=== PATIENT | female | born 1985 | race Caucasian/White ===

== ENCOUNTER 2017-09-24 05:45 | Day surgery (SDC) | payer OTHER ==
[2017-09-23 11:00] VITALS: BMI 24.2
--- NOTE | 2017-09-24 07:14 | HP ---
Admitting History and Physical - Admission History of Present Illness: Patient is a 32 y/o female with a past medical history of seasonal allergies, depression and anxiety. patient presents for ect, patient has received ect in the past and her last ect was 08/15/17. Patient reports she was admitted to [facility] from 03/22 - 04/23. patient reports receiving ect at [facility] and received a total of 13 ects to date. She report compliance with prescribed medications. Patient denies any recent illness or hospitalizations. She denies any suicidal or homicidal ideation, visual or auditory hallucinations. History Source: Patient Limitations to Obtaining History: No Limitations - Past Medical History ...LMP: 09/20/17 - Smoking History Smoking history: Former smoker Have you smoked in the past 12 months: Yes If you are a former smoker, when did you quit?: AUGUST 2017 - Alcohol/Substance Use Hx Alcohol Use: Yes (OCCASIONAL) History of Substance Use: reports: None - Social History Usual Living Arrangement: Yes: Alone ADL: Independent Occupation: [employer] History of Recent Travel: No Home Medications - Allergies Allergies/Adverse Reactions: Allergies Allergy/AdvReac Type Severity Reaction Status Date / Time cephalexin [From Keflex] Allergy Severe Difficulty Verified 09/23/17 10:47 Breathing raw vegetable Allergy Severe Difficulty Verified 09/23/17 10:47 Breathing FRUIT Allergy Severe Difficulty Uncoded 09/23/17 10:48 Breathing - Home Medications Home Medications: Ambulatory Orders Aripiprazole [Abilify] 10 mg PO DAILY 09/23/17 [place] Carbonate [Eskalith -] 900 mg PO DAILY 09/23/17 Lorazepam [Ativan] 1 mg PO BID PRN 09/23/17 Vortioxetine Hydrobromide [Trintellix] 20 mg PO DAILY 09/23/17 Family Disease History - Family Disease History Family History: Denies Review of Systems - Review of Systems Constitutional: reports: No Symptoms Eyes: reports: No Symptoms HENT: reports: No Symptoms Neck: reports: No Symptoms Cardiovascular: reports: No Symptoms Respiratory: reports: No Symptoms Gastrointestinal: reports: No Symptoms Genitourinary: reports: No Symptoms Musculoskeletal: reports: No Symptoms Integumentary: reports: No Symptoms Neurological: reports: No Symptoms Endocrine: reports: No Symptoms Hematology/Lymphatic: reports: No Symptoms Psychiatric: reports: No Symptoms Physical Examination Vital Signs: Vital Signs Temperature 98.2 F 09/24/17 06:30 Pulse Rate 63 09/24/17 06:30 Respiratory Rate 18 09/24/17 06:30 Blood Pressure 117/82 09/24/17 06:30 O2 Sat by Pulse Oximetry (%) 97 09/24/17 06:30 Constitutional: Yes: Well Nourished, No Distress, Calm Eyes: Yes: WNL, Conjunctiva Clear, EOM Intact HENT: Yes: WNL, Atraumatic, Normocephalic Neck: Yes: WNL, Supple, Trachea Midline Cardiovascular: Yes: WNL, Regular Rate and Rhythm, S1, S2 Respiratory: Yes: WNL, Regular, CTA Bilaterally Gastrointestinal: Yes: WNL, Normal Bowel Sounds, Soft ...Rectal Exam: Yes: Deferred Renal/: Yes: WNL Musculoskeletal: Yes: WNL Extremities: Yes: WNL Edema: No Peripheral Pulses WNL: Yes Peripheral Pulses: Left Radial: 4+, Right Radial: 4+, Left Doralis Pedis: 3+, Right Dorsalis Pedis: 3+, Left Femoral: 3+, Right Femoral: 3+ Integumentary: Yes: WNL Neurological: Yes: WNL, Alert, Oriented ...Motor Strength: WNL Psychiatric: Yes: WNL, Alert, Oriented Labs: Laboratory Tests 09/24/17 06:16 Urine HCG, Qual Negative CBC WBC 4.8 K/mm3 (4.0-10.0) 09/24/17 06:15 RBC 4.42 M/mm3 (3.60-5.2) 09/24/17 06:15 Hgb 14.4 GM/dL (10.7-15.3) 09/24/17 06:15 Hct 41.6 % (32.4-45.2) 09/24/17 06:15 MCV 94.1 fl (80-96) 09/24/17 06:15 MCH 32.6 pg (25.7-33.7) 09/24/17 06:15 MCHC 34.6 g/dl (32.0-36.0) 09/24/17 06:15 RDW 13.0 % (11.6-15.6) 09/24/17 06:15 Plt Count 291 K/MM3 (134-434) 09/24/17 06:15 MPV 8.4 fl (7.5-11.1) 09/24/17 06:15 Absolute Neuts (auto) 2.7 # 09/24/17 06:15 Neutrophils % 57.0 % (42.8-82.8) 09/24/17 06:15 Lymphocytes % 27.9 % (8-40) 09/24/17 06:15 Monocytes % 9.8 % (3.8-10.2) 09/24/17 06:15 Eosinophils % 3.9 % (0-4.5) 09/24/17 06:15 Basophils % 1.4 % (0-2.0) 09/24/17 06:15 Nucleated RBC % 0 % (0-0) 09/24/17 06:15 CMP Sodium 143 mmol/L (136-145) 09/24/17 06:15 Potassium 3.9 mmol/L (3.5-5.1) 09/24/17 06:15 Chloride 106 mmol/L (98-107) 09/24/17 06:15 Carbon Dioxide 26 mmol/L (21-32) 09/24/17 06:15 Anion Gap 11 (8-16) 09/24/17 06:15 BUN 8 mg/dL (7-18) 09/24/17 06:15 Creatinine 0.7 mg/dL (0.55-1.02) 09/24/17 06:15 Creat Clearance w eGFR > 60 (>60) 09/24/17 06:15 Random Glucose 91 mg/dL (74-106) 09/24/17 06:15 Calcium 8.5 mg/dL (8.5-10.1) 09/24/17 06:15 Total Bilirubin 0.3 mg/dL (0.2-1.0) 09/24/17 06:15 AST 11 U/L (15-37) L 09/24/17 06:15 ALT 19 U/L (12-78) 09/24/17 06:15 Alkaline Phosphatase 54 U/L (45-117) 09/24/17 06:15 Total Protein 6.6 g/dl (6.4-8.2) 09/24/17 06:15 Albumin 3.7 g/dl (3.4-5.0) 09/24/17 06:15 Imaging - Results EKG: Report Reviewed (nsr non-specific st abnormaility), Image Reviewed, Other Assessment/Plan patient is a 32 y/o female that presents for ect. \ labs and EKG reviewed patient is medically optimized for procedure
[2017-09-24 07:36] LABS: BASO % 1.4 % (0-2.0); EOS % 3.9 % (0-4.5); HEMATOCRIT 41.6 % (32.4-45.2); HEMOGLOBIN 14.4 GM/dL (10.7-15.3); LYMPH % 27.9 % (8-40); MCH 32.6 pg (25.7-33.7); MCHC 34.6 g/dl (32.0-36.0); MEAN CELL VOLUME 94.1 fl (80-96); MEAN PLT VOLUME 8.4 fl (7.5-11.1); MONO % 9.8 % (3.8-10.2); PLATELET COUNT 291 K/MM3 (134-434); RBC 4.42 M/mm3 (3.60-5.2); WHITE BLOOD COUNT 4.8 K/mm3 (4.0-10.0)
[2017-09-24] MEDS ORDERED: ACETAMINOPHEN 325 MG TABLET (FP) PO PRN (07:46)
[2017-09-24 08:21] LABS: ALBUMIN 3.7 g/dl (3.4-5.0); ANION GAP 11 (8-16); BILIRUBIN,TOTAL 0.3 mg/dL (0.2-1.0); BLOOD UREA NITROGEN 8 mg/dL (7-18); CALCIUM 8.5 mg/dL (8.5-10.1); CHLORIDE 106 mmol/L (98-107); CO2 26 mmol/L (21-32); CREATININE 0.7 mg/dL (0.55-1.02); GLUCOSE,RANDOM 91 mg/dL (74-106); POTASSIUM 3.9 mmol/L (3.5-5.1); SGOT/AST 11 U/L (15-37); SGPT/ALT 19 U/L (12-78); SODIUM 143 mmol/L (136-145); TOT PROT 6.6 g/dl (6.4-8.2)
[2017-09-24 08:22] LABS: ALK PHOS 54 U/L (45-117)
[2017-09-24] MEDS ORDERED: KETAMINE HCL 500 MG/10 ML VIAL ONE (08:31)
[2017-09-24 09:48] VITALS: TEMP 98.3
[2017-09-24 10:20] VITALS: BP 133/89; PULSE 89
--- NOTE | 2017-09-24 11:52 | EKG ---
Test Reason : Blood Pressure : / mmHG Vent. Rate : 060 BPM Atrial Rate : 060 BPM P-R Int : 124 ms QRS Dur : 080 ms QT Int : 446 ms P-R-T Axes : -13 065 064 degrees QTc Int : 446 ms NORMAL SINUS RHYTHM CANNOT RULE OUT ANTERIOR INFARCT , AGE UNDETERMINED ABNORMAL ECG NO PREVIOUS ECGS AVAILABLE Confirmed by FILIBERTO DANIELSON MD ([id number]) on 09/24/2017 11:51:59 AM Referred By: Gabe Mckenzie Confirmed By:FILIBERTO DANIELSON MD
== END 2017-09-24 10:15 | disposition home or self-care (01) ==
LOC: FECT 05:45
PROVIDERS: ATTEND Psychiatry & Neurology Psychiatry
PROC: GZB4ZZZ Other Electroconvulsive Therapy (ICD-10-PCS; principal; 2017-09-24 08:00)
DX: F33.2 Major depressive disorder, recurrent severe without psychotic features (principal)
CPT/HCPCS: 36415; 80053; 84703; 85025; 90870; 93005; 94760

== ENCOUNTER 2017-10-01 05:38 | Day surgery (SDC) | payer OTHER ==
[2017-09-29 17:02] VITALS: BMI 24.2
[2017-10-01] MEDS ORDERED: KETAMINE HCL 500 MG/10 ML VIAL ONE (06:53)
[2017-10-01 12:08] VITALS: TEMP 97.9
[2017-10-01 12:10] VITALS: BP 132/86; PULSE 66
== END 2017-10-01 08:50 | disposition home or self-care (01) ==
LOC: FECT 05:38
PROVIDERS: ATTEND Psychiatry & Neurology Psychiatry
PROC: GZB4ZZZ Other Electroconvulsive Therapy (ICD-10-PCS; principal; 2017-10-01 08:00)
DX: F33.2 Major depressive disorder, recurrent severe without psychotic features (principal)
CPT/HCPCS: 84703; 90870; 94760

== ENCOUNTER 2017-10-08 05:37 | Day surgery (SDC) | payer OTHER ==
[2017-10-06 14:55] VITALS: BMI 24.2
[2017-10-08 06:13] VITALS: TEMP 98.2
[2017-10-08] MEDS ORDERED: KETAMINE HCL 500 MG/10 ML VIAL ONE (06:59)
[2017-10-08 09:02] VITALS: BP 121/82; PULSE 76
== END 2017-10-08 09:00 | disposition home or self-care (01) ==
LOC: FECT 05:37
PROVIDERS: ATTEND Psychiatry & Neurology Psychiatry
PROC: GZB4ZZZ Other Electroconvulsive Therapy (ICD-10-PCS; principal; 2017-10-08 08:00)
DX: F33.2 Major depressive disorder, recurrent severe without psychotic features (principal)
CPT/HCPCS: 90870; 94760

== ENCOUNTER 2017-10-16 05:53 | Day surgery (SDC) | payer OTHER ==
[2017-10-14 13:34] VITALS: BMI 24.2
[2017-10-16 07:13] VITALS: TEMP 98
[2017-10-16] MEDS ORDERED: KETAMINE HCL 500 MG/10 ML VIAL ONE (08:17)
[2017-10-16 09:25] VITALS: BP 139/88; PULSE 76
== END 2017-10-16 09:55 | disposition home or self-care (01) ==
LOC: FECT 05:53
PROVIDERS: ATTEND Psychiatry & Neurology Psychiatry
PROC: GZB4ZZZ Other Electroconvulsive Therapy (ICD-10-PCS; principal; 2017-10-16 09:15)
DX: F33.2 Major depressive disorder, recurrent severe without psychotic features (principal)
CPT/HCPCS: 90870; 94760

== ENCOUNTER 2017-10-23 05:46 | Day surgery (SDC) | payer OTHER ==
[2017-10-22 11:32] VITALS: BMI 24.2
--- NOTE | 2017-10-23 07:44 | HP ---
Admitting History and Physical - Admission History of Present Illness: patient is a 32-year-old female with a past medical history of depression, anxiety, seasonal ALLERGIES. Patient presents for ECT she has been undergoing ECT since 2016.Her last ECT was October 20 2017. Patient reports slight improvement of depressive symptoms starting ECT. Patient denies any suicidal or homicidal ideation she denies any visual or auditory hallucination. Patient reports compliance with prescribed medication she denies any recent illnesses or hospitalizations. History Source: Patient Limitations to Obtaining History: No Limitations - Past Medical History ...LMP: 10/22/17 ...: No - Smoking History Smoking history: Former smoker Have you smoked in the past 12 months: Yes If you are a former smoker, when did you quit?: AUGUST 2017 - Alcohol/Substance Use Hx Alcohol Use: Yes (OCCASIONAL) History of Substance Use: reports: None - Social History Usual Living Arrangement: Yes: With Parent ADL: Independent Occupation: [employer] History of Recent Travel: No Home Medications - Allergies Allergies/Adverse Reactions: Allergies Allergy/AdvReac Type Severity Reaction Status Date / Time cephalexin [From Keflex] Allergy Severe Difficulty Verified 10/23/17 07:15 Breathing raw vegetable Allergy Severe Difficulty Verified 10/23/17 07:15 Breathing FRUIT Allergy Severe Difficulty Uncoded 10/23/17 07:15 Breathing - Home Medications Home Medications: Ambulatory Orders Aripiprazole [Abilify] 10 mg PO DAILY 09/23/17 [place] Carbonate [Eskalith -] 900 mg PO HS 09/23/17 Lorazepam [Ativan] 1 mg PO BID PRN 09/23/17 Vortioxetine Hydrobromide [Trintellix] 20 mg PO DAILY 09/23/17 Family Disease History - Family Disease History Family History: Denies Review of Systems - Review of Systems Constitutional: reports: No Symptoms Eyes: reports: No Symptoms HENT: reports: No Symptoms Neck: reports: No Symptoms Cardiovascular: reports: No Symptoms Respiratory: reports: No Symptoms Gastrointestinal: reports: No Symptoms Genitourinary: reports: No Symptoms Musculoskeletal: reports: No Symptoms Integumentary: reports: No Symptoms Neurological: reports: No Symptoms Endocrine: reports: No Symptoms Hematology/Lymphatic: reports: No Symptoms Psychiatric: reports: Depression Physical Examination Vital Signs: Vital Signs Temperature 98.2 F 10/23/17 07:16 Pulse Rate 60 10/23/17 07:16 Respiratory Rate 16 07/20/18 07:16 Blood Pressure 121/86 10/23/17 07:16 O2 Sat by Pulse Oximetry (%) 96 10/23/17 07:16 Constitutional: Yes: Well Nourished, No Distress, Calm Eyes: Yes: WNL, Conjunctiva Clear, EOM Intact HENT: Yes: WNL, Atraumatic, Normocephalic Neck: Yes: WNL, Supple, Trachea Midline Cardiovascular: Yes: WNL, Regular Rate and Rhythm, S1, S2 Respiratory: Yes: WNL, Regular, CTA Bilaterally Gastrointestinal: Yes: WNL, Normal Bowel Sounds, Soft ...Rectal Exam: Yes: Deferred Renal/: Yes: WNL Musculoskeletal: Yes: WNL Extremities: Yes: WNL Edema: No Peripheral Pulses WNL: Yes Peripheral Pulses: Left Radial: 4+, Right Radial: 4+, Left Doralis Pedis: 3+, Right Dorsalis Pedis: 3+, Left Femoral: 3+, Right Femoral: 3+ Integumentary: Yes: Tattoos Neurological: Yes: WNL, Alert, Oriented ...Motor Strength: WNL Psychiatric: Yes: WNL, Alert, Oriented Labs: review 09/24/2017 Imaging - Results EKG: Other (normal sinus rhythm) Assessment/Plan patient's a 32-year-old female who presents for a CT, labs and EKG reviewed She is medically optimized for procedure. informed consent risks/benefits to be obtained by Dr. Mckenzie
[2017-10-23] MEDS ORDERED: KETAMINE HCL 500 MG/10 ML VIAL ONE (08:48)
[2017-10-23] MEDS ORDERED: LABETALOL HCL 5 MG/1 ML (100MG/20 ML VIAL) IVPUSH ONE (09:51)
[2017-10-23 10:18] VITALS: BP 125/84; PULSE 69; TEMP 98
== END 2017-10-23 10:30 | disposition home or self-care (01) ==
LOC: FECT 05:46
PROVIDERS: ATTEND Psychiatry & Neurology Psychiatry
PROC: GZB4ZZZ Other Electroconvulsive Therapy (ICD-10-PCS; principal; 2017-10-23 08:15)
DX: F33.2 Major depressive disorder, recurrent severe without psychotic features (principal)
CPT/HCPCS: 90870; 94760

== ENCOUNTER 2017-10-27 05:38 | Day surgery (SDC) | payer OTHER ==
[2017-10-26 11:44] VITALS: BMI 24.2
[2017-10-27 07:07] VITALS: TEMP 97.9
[2017-10-27] MEDS ORDERED: KETAMINE HCL 500 MG/10 ML VIAL ONE (07:49)
[2017-10-27 09:48] VITALS: BP 135/90; PULSE 80
== END 2017-10-27 09:40 | disposition home or self-care (01) ==
LOC: FECT 05:38
PROVIDERS: ATTEND Psychiatry & Neurology Psychiatry
PROC: GZB4ZZZ Other Electroconvulsive Therapy (ICD-10-PCS; principal; 2017-10-27 07:15)
DX: F33.2 Major depressive disorder, recurrent severe without psychotic features (principal)
CPT/HCPCS: 84703; 90870; 94760

== ENCOUNTER 2017-10-30 05:39 | Day surgery (SDC) | payer OTHER ==
[2017-10-29 13:50] VITALS: BMI 24.2
[2017-10-30] MEDS ORDERED: KETAMINE HCL 500 MG/10 ML VIAL ONE (07:35)
[2017-10-30 09:22] VITALS: BP 135/89; PULSE 77; TEMP 98.9
== END 2017-10-30 09:00 | disposition home or self-care (01) ==
LOC: FECT 05:39
PROVIDERS: ATTEND Psychiatry & Neurology Psychiatry
PROC: GZB4ZZZ Other Electroconvulsive Therapy (ICD-10-PCS; principal; 2017-10-30 08:00)
DX: F33.2 Major depressive disorder, recurrent severe without psychotic features (principal)
CPT/HCPCS: 90870; 94760

== ENCOUNTER 2017-11-30 05:33 | Day surgery (SDC) | payer OTHER ==
[2017-11-23 13:40] VITALS: BMI 24.2
[2017-11-30 06:23] VITALS: TEMP 98.1
[2017-11-30] MEDS ORDERED: KETAMINE HCL 500 MG/10 ML VIAL ONE (07:22)
[2017-11-30 09:47] VITALS: BP 122/83; PULSE 61
== END 2017-11-30 09:00 | disposition home or self-care (01) ==
LOC: FECT 05:33
PROVIDERS: ATTEND Psychiatry & Neurology Psychiatry
PROC: GZB4ZZZ Other Electroconvulsive Therapy (ICD-10-PCS; principal; 2017-11-30 07:00)
DX: F33.2 Major depressive disorder, recurrent severe without psychotic features (principal)
CPT/HCPCS: 84703; 90870; 94760

== ENCOUNTER 2017-12-08 05:39 | Day surgery (SDC) | payer OTHER ==
[2017-12-08 06:14] VITALS: BMI 23.3
[2017-12-08] MEDS ORDERED: KETAMINE HCL 500 MG/10 ML VIAL ONE ×2 (06:54→06:55)
[2017-12-08 08:43] VITALS: TEMP 98.6
[2017-12-08 09:11] VITALS: BP 132/82; PULSE 65
== END 2017-12-08 09:15 | disposition home or self-care (01) ==
LOC: FECT 05:39
PROVIDERS: ATTEND Psychiatry & Neurology Psychiatry
PROC: GZB4ZZZ Other Electroconvulsive Therapy (ICD-10-PCS; principal; 2017-12-08 07:30)
DX: F33.2 Major depressive disorder, recurrent severe without psychotic features (principal)
CPT/HCPCS: 84703; 90870; 94760

== ENCOUNTER 2017-12-21 06:34 | Day surgery (SDC) | payer OTHER ==
[2017-12-21 07:04] VITALS: BMI 24.2
[2017-12-21] MEDS ORDERED: KETAMINE HCL 500 MG/10 ML VIAL ONE (07:20)
[2017-12-21] MEDS ORDERED: ACETAMINOPHEN 325 MG TABLET (FP) PO PRN (08:16)
[2017-12-21 08:43] VITALS: TEMP 98
[2017-12-21 09:21] VITALS: BP 130/85; PULSE 70
== END 2017-12-21 09:00 | disposition home or self-care (01) ==
LOC: FECT 06:34
PROVIDERS: ATTEND Psychiatry & Neurology Psychiatry
PROC: GZB4ZZZ Other Electroconvulsive Therapy (ICD-10-PCS; principal; 2017-12-21 07:15)
DX: F33.2 Major depressive disorder, recurrent severe without psychotic features (principal)
CPT/HCPCS: 84703; 90870; 94760

== ENCOUNTER 2017-12-28 05:38 | Day surgery (SDC) | payer OTHER ==
[2017-12-28 06:58] VITALS: BMI 24.2
[2017-12-28] MEDS ORDERED: Pregnancy Control Solution IV ONE (07:06)
--- NOTE | 2017-12-28 07:09 | HP ---
Admitting History and Physical - Admission History of Present Illness: Patient is a 32 y/o female with a past medical history of depression, anxiety, and seasonal allergies. Patient presents for ect, her last ect was 12/21. Patient reports a significant improvement in depressive symptoms since starting ect. She denies any change to her medications and reports compliance with prescribed medications. Patient denies any recent illnesses or hospitalizations. She denies any suicidal or homicidal ideation, visual or auditory hallucinations. History Source: Patient (P) Limitations to Obtaining History: No Limitations - Past Medical History ...LMP: 11/23/17 ...: No Psych: Yes: Depression - Past Surgical History Past Surgical History: Yes: None - Smoking History Smoking history: Current every day smoker Have you smoked in the past 12 months: Yes Aproximately how many cigarettes per day: 5 If you are a former smoker, when did you quit?: AUGUST 2017 - Alcohol/Substance Use Hx Alcohol Use: Yes (OCCASIONAL) History of Substance Use: reports: None - Social History Usual Living Arrangement: Yes: Alone ADL: Independent Occupation: [employer] History of Recent Travel: No Home Medications - Allergies Allergies/Adverse Reactions: Allergies Allergy/AdvReac Type Severity Reaction Status Date / Time cephalexin [From Keflex] Allergy Severe Difficulty Verified 12/08/17 06:12 Breathing raw vegetable Allergy Severe Difficulty Verified 12/08/17 06:12 Breathing FRUIT Allergy Severe Difficulty Uncoded 12/08/17 06:12 Breathing - Home Medications Home Medications: Ambulatory Orders Aripiprazole [Abilify] 10 mg PO DAILY 09/23/17 Lorazepam [Ativan] 1 mg PO BID PRN 09/23/17 Bupropion HCl [Wellbutrin Xl -] 150 mg PO DAILY 11/23/17 Duloxetine HCl [Cymbalta] 40 mg PO BID 11/23/17 Family Disease History - Family Disease History Family History: Denies Review of Systems - Review of Systems Constitutional: reports: No Symptoms Eyes: reports: No Symptoms HENT: reports: No Symptoms Neck: reports: No Symptoms Cardiovascular: reports: No Symptoms Respiratory: reports: No Symptoms Gastrointestinal: reports: No Symptoms Genitourinary: reports: No Symptoms Musculoskeletal: reports: No Symptoms Integumentary: reports: No Symptoms Neurological: reports: No Symptoms Endocrine: reports: No Symptoms Hematology/Lymphatic: reports: No Symptoms Psychiatric: reports: No Symptoms Physical Examination Vital Signs: Vital Signs Temperature 98.6 F 12/28/17 06:54 Pulse Rate 64 12/28/17 06:54 Respiratory Rate 18 12/28/17 06:54 Blood Pressure 118/78 12/28/17 06:54 O2 Sat by Pulse Oximetry (%) 99 12/28/17 06:54 Constitutional: Yes: Well Nourished, No Distress, Calm Eyes: Yes: WNL, Conjunctiva Clear, EOM Intact HENT: Yes: WNL, Atraumatic, Normocephalic Neck: Yes: WNL, Supple, Trachea Midline Cardiovascular: Yes: WNL, Regular Rate and Rhythm, S1, S2 Respiratory: Yes: WNL, Regular, CTA Bilaterally Gastrointestinal: Yes: WNL, Normal Bowel Sounds, Soft ...Rectal Exam: Yes: Deferred Renal/: Yes: WNL Breast(s): Yes: WNL Musculoskeletal: Yes: WNL Extremities: Yes: WNL Edema: No Peripheral Pulses WNL: Yes Peripheral Pulses: Left Radial: 4+, Right Radial: 4+, Left Doralis Pedis: 3+, Right Dorsalis Pedis: 3+, Left Femoral: 3+, Right Femoral: 3+ Integumentary: Yes: WNL Neurological: Yes: WNL, Alert, Oriented ...Motor Strength: WNL Psychiatric: Yes: WNL, Alert, Oriented Labs: reviewed 09/21 Imaging - Results EKG: Other (nsr) Assessment/Plan patient is a 32 y/o female that presents for ect, labs and ekg reviewed, patient is medically optimized for procedure informed consent, risks/benefits to be obtained by Dr Mckenzie.
[2017-12-28] MEDS ORDERED: KETAMINE HCL 500 MG/10 ML VIAL ONE (07:29)
[2017-12-28 08:48] VITALS: TEMP 98.2
[2017-12-28 10:39] VITALS: BP 130/78; PULSE 72
== END 2017-12-28 09:15 | disposition home or self-care (01) ==
LOC: FECT 05:38
PROVIDERS: ATTEND Psychiatry & Neurology Psychiatry
PROC: GZB4ZZZ Other Electroconvulsive Therapy (ICD-10-PCS; principal; 2017-12-28 07:00)
DX: F33.2 Major depressive disorder, recurrent severe without psychotic features (principal)
CPT/HCPCS: 90870; 94760

== ENCOUNTER 2018-01-04 05:41 | Day surgery (SDC) | payer OTHER ==
[2018-01-04 06:45] VITALS: BMI 24.2
[2018-01-04] MEDS ORDERED: KETAMINE HCL 500 MG/10 ML VIAL ONE (06:56)
[2018-01-04 08:18] VITALS: TEMP 98.7
[2018-01-04 08:19] VITALS: BP 139/89; PULSE 87
== END 2018-01-04 08:25 | disposition home or self-care (01) ==
LOC: FECT 05:41
PROVIDERS: ATTEND Psychiatry & Neurology Psychiatry
PROC: GZB4ZZZ Other Electroconvulsive Therapy (ICD-10-PCS; principal; 2018-01-04 07:45)
DX: F33.2 Major depressive disorder, recurrent severe without psychotic features (principal)
CPT/HCPCS: 84703; 90870; 94760

== ENCOUNTER 2018-01-18 05:45 | Day surgery (SDC) | payer OTHER ==
[2018-01-18 06:56] VITALS: TEMP 98.7; BMI 24.2
[2018-01-18] MEDS ORDERED: KETAMINE HCL 500 MG/10 ML VIAL ONE (07:40)
[2018-01-18 09:25] VITALS: BP 126/82; PULSE 84
== END 2018-01-18 09:38 | disposition home or self-care (01) ==
LOC: FECT 05:45
PROVIDERS: ATTEND Psychiatry & Neurology Psychiatry
PROC: GZB4ZZZ Other Electroconvulsive Therapy (ICD-10-PCS; principal; 2018-01-18 07:45)
DX: F33.2 Major depressive disorder, recurrent severe without psychotic features (principal)
CPT/HCPCS: 84703; 90870; 94760

== ENCOUNTER 2018-01-25 05:46 | Day surgery (SDC) | payer OTHER ==
[2018-01-25 07:27] VITALS: BMI 22.6
[2018-01-25] MEDS ORDERED: KETAMINE HCL 500 MG/10 ML VIAL ONE (08:14)
[2018-01-25 09:18] VITALS: PULSE 68; TEMP 98.4
[2018-01-25 09:40] VITALS: BP 132/89
== END 2018-01-25 09:45 | disposition home or self-care (01) ==
LOC: FECT 05:46
PROVIDERS: ATTEND Psychiatry & Neurology Psychiatry
PROC: GZB4ZZZ Other Electroconvulsive Therapy (ICD-10-PCS; principal; 2018-01-25 08:00)
DX: F33.2 Major depressive disorder, recurrent severe without psychotic features (principal)
CPT/HCPCS: 84703; 90870; 94760

== ENCOUNTER 2018-02-01 05:51 | Day surgery (SDC) | payer OTHER ==
--- NOTE | 2018-02-01 07:13 | HP ---
Admitting History and Physical - Admission Chief Complaint: ECT History of Present Illness: Patient is a 32 y/o female with a past medical history of depression, anxiety, and seasonal allergies. Patient presents for ect, her last ect was . Patient reports a significant improvement to depressive symptoms since starting ect. She denies any changes to her medications and reports compliance with her prescribed medications since starting ect. Patient denies any recent illnesses or hospitalizations. She denies any suicidal or homicidal ideation, visual or auditory hallucinations. History Source: Patient Limitations to Obtaining History: No Limitations - Past Medical History ...LMP: 01/17/18 Psych: Yes: Depression - Past Surgical History Past Surgical History: Yes: None - Smoking History Smoking history: Current every day smoker Have you smoked in the past 12 months: Yes Aproximately how many cigarettes per day: 5 If you are a former smoker, when did you quit?: AUGUST 2017 - Alcohol/Substance Use Hx Alcohol Use: Yes (OCCASIONAL) History of Substance Use: reports: None - Social History Usual Living Arrangement: Yes: Alone ADL: Independent Occupation: [employer] History of Recent Travel: No Home Medications - Allergies Allergies/Adverse Reactions: Allergies Allergy/AdvReac Type Severity Reaction Status Date / Time cephalexin [From Keflex] Allergy Severe Difficulty Verified 12/08/17 06:12 Breathing raw vegetable Allergy Severe Difficulty Verified 12/08/17 06:12 Breathing FRUIT Allergy Severe Difficulty Uncoded 12/08/17 06:12 Breathing - Home Medications Home Medications: Ambulatory Orders Aripiprazole [Abilify] 10 mg PO DAILY 09/23/17 Lorazepam [Ativan] 1 mg PO BID PRN 09/23/17 Bupropion HCl [Wellbutrin Xl -] 300 mg PO DAILY 11/23/17 Duloxetine HCl [Cymbalta] 40 mg PO BID 11/23/17 Family Disease History - Family Disease History Family History: Denies Review of Systems - Review of Systems Constitutional: reports: No Symptoms Eyes: reports: No Symptoms HENT: reports: No Symptoms Neck: reports: No Symptoms Cardiovascular: reports: No Symptoms Respiratory: reports: No Symptoms Gastrointestinal: reports: No Symptoms Genitourinary: reports: No Symptoms Musculoskeletal: reports: No Symptoms Integumentary: reports: No Symptoms Neurological: reports: No Symptoms Endocrine: reports: No Symptoms Hematology/Lymphatic: reports: No Symptoms Psychiatric: reports: No Symptoms Physical Examination Constitutional: Yes: Well Nourished, No Distress, Calm Eyes: Yes: WNL, Conjunctiva Clear, EOM Intact HENT: Yes: WNL, Atraumatic, Normocephalic Neck: Yes: WNL, Supple, Trachea Midline Cardiovascular: Yes: WNL, Regular Rate and Rhythm, S1, S2 Respiratory: Yes: WNL, Regular, CTA Bilaterally Gastrointestinal: Yes: WNL, Normal Bowel Sounds, Soft ...Rectal Exam: Yes: Deferred Renal/: Yes: WNL Breast(s): Yes: WNL Musculoskeletal: Yes: WNL Extremities: Yes: WNL Edema: No Peripheral Pulses WNL: Yes Integumentary: Yes: Tattoos Neurological: Yes: WNL, Alert, Oriented ...Motor Strength: WNL Psychiatric: Yes: WNL, Alert, Oriented Labs: reviewed 09/21 Imaging - Results EKG: Report Reviewed, Other (nsr) Assessment/Plan patient is a 32 y/o female that presents for ect, labs and ekg reviewed patient is medically optimized for procedure
[2018-02-01 07:23] VITALS: TEMP 98.2; BMI 22.6
[2018-02-01] MEDS ORDERED: KETAMINE HCL 500 MG/10 ML VIAL ONE (07:48)
[2018-02-01 09:22] VITALS: BP 129/90; PULSE 82
== END 2018-02-01 09:15 | disposition home or self-care (01) ==
LOC: FECT 05:51
PROVIDERS: ATTEND Psychiatry & Neurology Psychiatry
PROC: GZB4ZZZ Other Electroconvulsive Therapy (ICD-10-PCS; principal; 2018-02-01 08:30)
DX: F33.2 Major depressive disorder, recurrent severe without psychotic features (principal)
CPT/HCPCS: 84703; 90870; 94760

== ENCOUNTER 2018-02-15 05:46 | Day surgery (SDC) | payer OTHER ==
[2018-02-01 14:14] VITALS: BMI 22.6
[2018-02-15] MEDS ORDERED: KETAMINE HCL 500 MG/10 ML VIAL ONE (08:06)
[2018-02-15 09:00] VITALS: TEMP 98.2
[2018-02-15 09:32] VITALS: BP 134/88; PULSE 74
== END 2018-02-15 09:37 | disposition home or self-care (01) ==
LOC: FECT 05:46
PROVIDERS: ATTEND Psychiatry & Neurology Psychiatry
PROC: GZB4ZZZ Other Electroconvulsive Therapy (ICD-10-PCS; principal; 2018-02-15 07:45)
DX: F33.2 Major depressive disorder, recurrent severe without psychotic features (principal)
CPT/HCPCS: 84703; 90870; 94760

== ENCOUNTER 2018-03-01 05:44 | Day surgery (SDC) | payer OTHER ==
[2018-03-01 07:16] VITALS: TEMP 98; BMI 24.2
[2018-03-01] MEDS ORDERED: KETAMINE HCL 500 MG/10 ML VIAL ONE (07:46)
[2018-03-01 09:07] VITALS: BP 138/88; PULSE 69
== END 2018-03-01 09:10 | disposition home or self-care (01) ==
LOC: FECT 05:44
PROVIDERS: ATTEND Psychiatry & Neurology Psychiatry
PROC: GZB4ZZZ Other Electroconvulsive Therapy (ICD-10-PCS; principal; 2018-03-01 07:15)
DX: F33.2 Major depressive disorder, recurrent severe without psychotic features (principal)
CPT/HCPCS: 84703; 90870; 94760

== ENCOUNTER 2018-03-15 05:42 | Day surgery (SDC) | payer OTHER ==
[2018-03-15 07:28] VITALS: BMI 25.3
--- NOTE | 2018-03-15 07:34 | HP ---
CHIEF COMPLAINT: Major Depressive Disorder PCP: Dr. Quezada, [place] Primary Psych: Dr. Kuo, [facility] [place] HISTORY OF PRESENT ILLNESS: 32 year-old female with a PMH of major depressive disorder. She presents today for ECT. 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 Smoking: current every day Alcohol: occasional Drugs: no Family History: Allergies cephalexin [From Keflex] Allergy (Severe, Verified 12/08/17 06:12) Difficulty Breathing raw vegetable Allergy (Severe, Verified 12/08/17 06:12) Difficulty Breathing FRUIT Allergy (Severe, Uncoded 12/08/17 06:12) Difficulty Breathing HOME MEDICATIONS: Home Medications Medication Instructions Recorded Aripiprazole [Abilify] 10 mg PO DAILY 09/23/17 Lorazepam [Ativan] 1 mg PO BID PRN 09/23/17 Bupropion HCl [Wellbutrin Xl -] 300 mg PO DAILY 11/23/17 Duloxetine HCl [Cymbalta] 60 mg PO BID 11/23/17 REVIEW OF SYSTEMS CONSTITUTIONAL: Absent: fever, chills, diaphoresis, generalized weakness, malaise, loss of appetite, weight change HEENT: Absent: rhinorrhea, nasal congestion, throat pain, throat swelling, difficulty swallowing, mouth swelling, ear pain, eye pain, visual changes CARDIOVASCULAR: Absent: chest pain, syncope, palpitations, irregular heart rate, lightheadedness , peripheral edema RESPIRATORY: Absent: cough, shortness of breath, dyspnea with exertion, orthopnea, wheezing, stridor, hemoptysis GASTROINTESTINAL: Absent: abdominal pain, abdominal distension, nausea, vomiting, diarrhea, constipation, melena, hematochezia GENITOURINARY: Absent: dysuria, frequency, urgency, hesitancy, hematuria, flank pain, genital pain MUSCULOSKELETAL: Absent: myalgia, arthralgia, joint swelling, back pain, neck pain SKIN: Absent: rash, itching, pallor HEMATOLOGIC/IMMUNOLOGIC: Absent: easy bleeding, easy bruising, lymphadenopathy, frequent infections ENDOCRINE: Absent: unexplained weight gain, unexplained weight loss, heat intolerance, cold intolerance NEUROLOGIC: Absent: headache, focal weakness or paresthesias, dizziness, unsteady gait, seizure, mental status changes, bladder or bowel incontinence PSYCHIATRIC: Absent: anxiety, depression, suicidal or homicidal ideation, hallucinations. PHYSICAL EXAMINATION Vital Signs - 24 hr 03/15/18 07:24 Temperature 98.1 F Pulse Rate 72 Respiratory 18 Rate Blood Pressure 121/84 O2 Sat by Pulse 96 Oximetry (%) GENERAL: Awake, alert, and fully oriented, in no acute distress. HEAD: Normal with no signs of trauma. EYES: Pupils equal, round and reactive to light, sclera anicteric, conjunctiva clear. No lid lag. LUNGS: Breath sounds equal, clear to auscultation bilaterally. No wheezes, and no crackles. No accessory muscle use. HEART: Regular rate and rhythm, S1 and S2 without murmur, rub or gallop. ABDOMEN: Soft, nontender, not distended UPPER EXTREMITIES: 2+ pulses, warm, well-perfused. No cyanosis. No clubbing. No peripheral edema. LOWER EXTREMITIES: 2+ pulses, warm, well-perfused. No calf tenderness. No peripheral edema. NEUROLOGICAL: Cranial nerves II-XII intact. Normal speech. Laboratory Results - last 24 hr 03/15/18 07:10 Urine HCG, Qual Negative ASSESSMENT/PLAN 32 year-old female with a PMH significant for major depressive disorder presents today for ECT. Cardiac --no cardiac history --Revised Cardiac Risk Index for Pre-Operative Risk: 0 points, 0.4% risk of major cardiac event Pulmonary --no pulmonary history Neurological --no neurological or neurosurgical history; no history of trauma Anesthesia --no known history of problems with anesthesia ECT is a low risk procedure. The relative benefits of the planned procedure outweigh the relative risks for this patient at this time. Visit type - Emergency Visit Emergency Visit: No - New Patient This patient is new to me today: Yes Date on this admission: 03/15/18 - Critical Care Critical Care patient: No
[2018-03-15] MEDS ORDERED: KETAMINE HCL 500 MG/10 ML VIAL ONE (07:53)
[2018-03-15 08:44] VITALS: TEMP 98.6
[2018-03-15 09:24] VITALS: BP 133/86; PULSE 66
== END 2018-03-15 09:30 | disposition home or self-care (01) ==
LOC: FECT 05:42
PROVIDERS: ATTEND Psychiatry & Neurology Psychiatry
PROC: GZB4ZZZ Other Electroconvulsive Therapy (ICD-10-PCS; principal; 2018-03-15 07:15)
DX: F33.2 Major depressive disorder, recurrent severe without psychotic features (principal)
CPT/HCPCS: 84703; 90870; 94760

== ENCOUNTER 2018-03-22 05:46 | Day surgery (SDC) | payer OTHER ==
[2018-03-15 12:14] VITALS: BMI 25.3
[2018-03-22] MEDS ORDERED: KETAMINE HCL 500 MG/10 ML VIAL ONE (06:58)
[2018-03-22 07:56] VITALS: TEMP 99
[2018-03-22 08:33] VITALS: BP 118/73; PULSE 66
[2018-03-22 08:52] LABS: BASO % 0.1 % (0-2.0); EOS % 1.2 % (0-4.5); HEMATOCRIT 40.5 % (32.4-45.2); HEMOGLOBIN 13.8 GM/dl (10.7-15.3); LYMPH % 8.9 % (8-40); MCH 32.9 pg (25.7-33.7); MCHC 34.1 g/dl (32.0-36.0); MEAN CELL VOLUME 96.4 fl (80-96); MEAN PLT VOLUME 7.9 fl (7.5-11.1); NEUT % 86.8 % (42.8-82.8); PLATELET COUNT 262 K/MM3 (134-434); RDW 12.2 % (11.6-15.6)
[2018-03-22 08:59] LABS: ALBUMIN 3.7 g/dl (3.5-5.0); ALK PHOS 53 U/L (32-92); ANION GAP 6 MMOL/L (8-16); BILIRUBIN,TOTAL 0.3 mg/dl (0.2-1.0); BLOOD UREA NITROGEN 15 mg/dl (7-18); CALCIUM 8.6 mg/dl (8.4-10.2); CHLORIDE 106 mmol/L (98-107); CO2 25 mmol/L (22-28); CREATININE 0.6 mg/dl (0.6-1.3); GLUCOSE,RANDOM 107 mg/dl (74-106); MAGNESIUM 1.8 mg/dL (1.8-2.4); POTASSIUM 4.3 mmol/L (3.5-5.1); SGOT/AST 15 U/L (10-42); SGPT/ALT 15 U/L (10-40); SODIUM 137 mmol/L (136-145); TOT PROT 5.8 g/dl (6.4-8.3)
--- NOTE | 2018-03-22 09:58 | EKG ---
Test Reason : Blood Pressure : / mmHG Vent. Rate : 068 BPM Atrial Rate : 068 BPM P-R Int : 136 ms QRS Dur : 078 ms QT Int : 414 ms P-R-T Axes : 032 062 046 degrees QTc Int : 440 ms NORMAL SINUS RHYTHM NORMAL ECG WHEN COMPARED WITH ECG OF 24-SEP-2017 06:47, NO SIGNIFICANT CHANGE WAS FOUND Confirmed by CHAPIS ADAMES MD ([id number]) on 03/22/2018 9:57:35 AM Referred By: Gabe Mckenzie Confirmed By:CHAPIS ADAMES MD
== END 2018-03-22 08:47 | disposition home or self-care (01) ==
LOC: FECT 05:46
PROVIDERS: ATTEND Psychiatry & Neurology Psychiatry
PROC: GZB4ZZZ Other Electroconvulsive Therapy (ICD-10-PCS; principal; 2018-03-22 07:45)
DX: F33.2 Major depressive disorder, recurrent severe without psychotic features (principal)
CPT/HCPCS: 36415; 80053; 83735; 84703; 85025; 90870; 93005; 94760

== ENCOUNTER 2018-03-29 05:47 | Day surgery (SDC) | payer OTHER ==
[2018-03-22 10:20] VITALS: BMI 25.3
[2018-03-29 06:56] VITALS: TEMP 98
[2018-03-29] MEDS ORDERED: KETAMINE HCL 500 MG/10 ML VIAL ONE (07:06)
[2018-03-29 08:45] VITALS: BP 131/75; PULSE 76
== END 2018-03-29 09:00 | disposition home or self-care (01) ==
LOC: FECT 05:47
PROVIDERS: ATTEND Psychiatry & Neurology Psychiatry
PROC: GZB4ZZZ Other Electroconvulsive Therapy (ICD-10-PCS; principal; 2018-03-29 07:45)
DX: F33.2 Major depressive disorder, recurrent severe without psychotic features (principal)
CPT/HCPCS: 84703; 90870; 94760

== ENCOUNTER 2018-04-12 05:50 | Day surgery (SDC) | payer OTHER ==
[2018-04-07 10:56] VITALS: BMI 25.8
[2018-04-12 07:01] VITALS: TEMP 98.4
[2018-04-12] MEDS ORDERED: KETAMINE HCL 500 MG/10 ML VIAL ONE (07:31)
--- NOTE | 2018-04-12 08:59 | HP ---
CHIEF COMPLAINT: Major Depressive Disorder PCP: Dr. Quezada, [place] Primary Psych: Dr. Kuo, [facility] [place] HISTORY OF PRESENT ILLNESS: 32 year-old female with a PMH of major depressive disorder. She presents today for ECT. 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 Smoking: current every day Alcohol: occasional Drugs: no Allergies cephalexin [From Keflex] Allergy (Severe, Verified 12/08/17 06:12) Difficulty Breathing raw vegetable Allergy (Severe, Verified 12/08/17 06:12) Difficulty Breathing FRUIT Allergy (Severe, Uncoded 12/08/17 06:12) Difficulty Breathing HOME MEDICATIONS: Home Medications Medication Instructions Recorded Aripiprazole [Abilify] 10 mg PO DAILY 09/23/17 Lorazepam [Ativan] 1 mg PO BID PRN 09/23/17 Bupropion HCl [Wellbutrin Xl -] 300 mg PO DAILY 11/23/17 Duloxetine HCl [Cymbalta] 60 mg PO BID 11/23/17 REVIEW OF SYSTEMS CONSTITUTIONAL: Absent: fever, chills, diaphoresis, generalized weakness, malaise, loss of appetite, weight change HEENT: Absent: rhinorrhea, nasal congestion, throat pain, throat swelling, difficulty swallowing, mouth swelling, ear pain, eye pain, visual changes CARDIOVASCULAR: Absent: chest pain, syncope, palpitations, irregular heart rate, lightheadedness , peripheral edema RESPIRATORY: Absent: cough, shortness of breath, dyspnea with exertion, orthopnea, wheezing, stridor, hemoptysis GASTROINTESTINAL: Absent: abdominal pain, abdominal distension, nausea, vomiting, diarrhea, constipation, melena, hematochezia GENITOURINARY: Absent: dysuria, frequency, urgency, hesitancy, hematuria, flank pain, genital pain MUSCULOSKELETAL: Absent: myalgia, arthralgia, joint swelling, back pain, neck pain SKIN: Absent: rash, itching, pallor HEMATOLOGIC/IMMUNOLOGIC: Absent: easy bleeding, easy bruising, lymphadenopathy, frequent infections ENDOCRINE: Absent: unexplained weight gain, unexplained weight loss, heat intolerance, cold intolerance NEUROLOGIC: Absent: headache, focal weakness or paresthesias, dizziness, unsteady gait, seizure, mental status changes, bladder or bowel incontinence PHYSICAL EXAMINATION Vital Signs - 24 hr 04/12/18 04/12/18 04/12/18 06:59 08:07 08:12 Temperature 98.4 F Pulse Rate 64 64 64 Respiratory 18 16 17 Rate Blood Pressure 129/85 152/96 151/95 O2 Sat by Pulse 97 95 96 Oximetry (%) GENERAL: Awake, alert, and fully oriented, in no acute distress. HEAD: Normal with no signs of trauma. EYES: Pupils equal, round and reactive to light, sclera anicteric, conjunctiva clear. LUNGS: Breath sounds equal, clear to auscultation bilaterally. No wheezes, and no crackles. No accessory muscle use. HEART: Regular rate and rhythm, normal S1 and S2 ABDOMEN: Soft, nontender, not distended MUSCULOSKELETAL: Normal range of motion at all joints. No bony deformities or tenderness. No CVA tenderness. UPPER EXTREMITIES: 2+ pulses, warm, well-perfused. No cyanosis. No clubbing. No peripheral edema. LOWER EXTREMITIES: 2+ pulses, warm, well-perfused. No calf tenderness. No peripheral edema. NEUROLOGICAL: Cranial nerves II-XII intact. Normal speech. Laboratory Results - last 24 hr 04/12/18 06:56 Urine HCG, Qual Negative ASSESSMENT/PLAN: Cardiac --no cardiac history --Revised Cardiac Risk Index for Pre-Operative Risk: 0 points, 0.4% risk of major cardiac event Pulmonary --no pulmonary history Neurological --no neurological or neurosurgical history; no history of trauma Anesthesia --no reported problems with anesthesia ECT is a low risk procedure. The relative benefits of the planned procedure outweigh the relative risks for this patient at this time. Visit type - Emergency Visit Emergency Visit: No - New Patient This patient is new to me today: Yes Date on this admission: 04/12/18 - Critical Care Critical Care patient: No
[2018-04-12 09:03] VITALS: BP 137/90; PULSE 69
== END 2018-04-12 09:15 | disposition home or self-care (01) ==
LOC: FECT 05:50
PROVIDERS: ATTEND Psychiatry & Neurology Psychiatry
PROC: GZB4ZZZ Other Electroconvulsive Therapy (ICD-10-PCS; principal; 2018-04-12 08:00)
DX: F32.9 Major depressive disorder, single episode, unspecified (principal)
CPT/HCPCS: 84703; 90870; 94760

== ENCOUNTER 2018-04-19 06:59 | Day surgery (SDC) | payer OTHER ==
[2018-04-19 08:27] VITALS: BMI 25.8
[2018-04-19] MEDS ORDERED: KETAMINE HCL 500 MG/10 ML VIAL ONE (09:10)
[2018-04-19] MEDS ORDERED: ACETAMINOPHEN 325 MG TABLET (FP) PO PRN (09:40)
[2018-04-19] MEDS ORDERED: PROMETHAZINE HCL 25 MG/1 ML VIAL IVPB PRN (09:40)
[2018-04-19] MEDS ORDERED: LACTATED RINGERS SOLUTION 1,000 ML IV SCH (09:45)
[2018-04-19 10:19] VITALS: TEMP 97.8
[2018-04-19 10:34] VITALS: BP 138/90; PULSE 72
== END 2018-04-19 10:35 | disposition home or self-care (01) ==
LOC: FECT 06:59
PROVIDERS: ATTEND Psychiatry & Neurology Psychiatry
PROC: GZB4ZZZ Other Electroconvulsive Therapy (ICD-10-PCS; principal; 2018-04-19 08:30)
DX: F33.2 Major depressive disorder, recurrent severe without psychotic features (principal)
CPT/HCPCS: 84703; 90870; 94760

== ENCOUNTER 2018-04-26 05:49 | Day surgery (SDC) | payer OTHER ==
[2018-04-26 06:52] VITALS: TEMP 98.3; BMI 25.8
[2018-04-26] MEDS ORDERED: KETAMINE HCL 500 MG/10 ML VIAL ONE (07:23)
[2018-04-26 08:59] VITALS: BP 130/81; PULSE 73
== END 2018-04-26 08:45 | disposition home or self-care (01) ==
LOC: FECT 05:49
PROVIDERS: ATTEND Psychiatry & Neurology Psychiatry
PROC: GZB4ZZZ Other Electroconvulsive Therapy (ICD-10-PCS; principal; 2018-04-26 08:00)
DX: F33.2 Major depressive disorder, recurrent severe without psychotic features (principal)
CPT/HCPCS: 84703; 90870; 94760

== ENCOUNTER 2018-05-03 05:41 | Day surgery (SDC) | payer OTHER ==
[2018-05-03 06:43] VITALS: BMI 25.8
[2018-05-03] MEDS ORDERED: KETAMINE HCL 500 MG/10 ML VIAL ONE (06:55)
[2018-05-03] MEDS ORDERED: PROMETHAZINE HCL 25 MG/1 ML VIAL IVPUSH PRN (07:34)
[2018-05-03] MEDS ORDERED: ACETAMINOPHEN 500 MG TABLET (FP) PO PRN (07:34)
[2018-05-03 07:37] VITALS: TEMP 98.3
[2018-05-03] MEDS ORDERED: LACTATED RINGERS SOLUTION 1,000 ML IV SCH (07:45)
[2018-05-03 08:31] VITALS: BP 131/87; PULSE 69
== END 2018-05-03 08:25 | disposition home or self-care (01) ==
LOC: FECT 05:41
PROVIDERS: ATTEND Psychiatry & Neurology Psychiatry
PROC: GZB4ZZZ Other Electroconvulsive Therapy (ICD-10-PCS; principal; 2018-05-03 07:15)
DX: F33.2 Major depressive disorder, recurrent severe without psychotic features (principal)
CPT/HCPCS: 84703; 90870; 94760

== ENCOUNTER 2018-05-10 05:42 | Day surgery (SDC) | payer OTHER | END 2018-05-10 09:20 | disposition home or self-care (01) | LOC: FECT 05:42 ==

== ENCOUNTER 2018-05-17 05:45 | Day surgery (SDC) | payer OTHER ==
[2018-05-17 06:40] VITALS: BMI 25.7
[2018-05-17] MEDS ORDERED: KETAMINE HCL 500 MG/10 ML VIAL ONE (06:57)
[2018-05-17 08:33] VITALS: TEMP 98.5
[2018-05-17 08:56] VITALS: BP 121/65; PULSE 72
== END 2018-05-17 08:57 | disposition home or self-care (01) ==
LOC: FECT 05:45
PROVIDERS: ATTEND Psychiatry & Neurology Psychiatry
PROC: GZB4ZZZ Other Electroconvulsive Therapy (ICD-10-PCS; principal; 2018-05-17 07:00)
DX: F33.2 Major depressive disorder, recurrent severe without psychotic features (principal)
CPT/HCPCS: 84703; 90870; 94760

== ENCOUNTER → 2018-05-31 | Day surgery (SDC) | payer OTHER ==
[2018-05-17 11:08] VITALS: BMI 25.7
[~2018-05-31] MED LIST: KETAMINE HCL SYRINGES 150 MG/3 ML ONE; Pregnancy Control Solution IV ONE
[2018-05-31 08:11] VITALS: TEMP 97.6
[2018-05-31 08:53] VITALS: BP 132/82; PULSE 74
== END | disposition home or self-care (01) ==
LOC: FECT 05:43
PROVIDERS: ATTEND Psychiatry & Neurology Psychiatry
PROC: GZB4ZZZ Other Electroconvulsive Therapy (ICD-10-PCS; principal; 2018-05-31 07:15)
DX: F33.2 Major depressive disorder, recurrent severe without psychotic features (principal)
CPT/HCPCS: 81025; 84703; 90870; 94760

== ENCOUNTER 2018-06-14 05:42 | Day surgery (SDC) | payer OTHER ==
[2018-06-02 16:23] VITALS: BMI 25.7
[2018-06-14] MEDS ORDERED: KETAMINE HCL 500 MG/10 ML VIAL ONE (07:47)
[2018-06-14 08:50] VITALS: TEMP 98.2
[2018-06-14 09:13] VITALS: BP 139/90; PULSE 71
--- NOTE | 2018-06-14 12:46 | HP ---
CHIEF COMPLAINT: Major Depressive Disorder PCP: Dr. Quezada, [place] Primary Psych: Dr. Kuo, [facility] [place] HISTORY OF PRESENT ILLNESS: 32 year-old female with a PMH of major depressive disorder. She presents today for ECT. 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 every day Alcohol: occasional Drugs: no Allergies cephalexin [From Keflex] Allergy (Severe, Verified 06/02/18 16:18) Difficulty Breathing raw vegetable Allergy (Severe, Verified 06/02/18 16:18) Difficulty Breathing FRUIT Allergy (Severe, Uncoded 06/02/18 16:18) Difficulty Breathing HOME MEDICATIONS: Home Medications Medication Instructions Recorded Aripiprazole [Abilify] 10 mg PO DAILY 09/23/17 Lorazepam [Ativan] 1 mg PO BID PRN 09/23/17 Bupropion HCl [Wellbutrin Xl -] 300 mg PO DAILY 11/23/17 Duloxetine HCl [Cymbalta] 60 mg PO BID 11/23/17 REVIEW OF SYSTEMS CONSTITUTIONAL: Absent: fever, chills, diaphoresis, generalized weakness, malaise, loss of appetite, weight change HEENT: Absent: rhinorrhea, nasal congestion, throat pain, throat swelling, difficulty swallowing, mouth swelling, ear pain, eye pain, visual changes CARDIOVASCULAR: Absent: chest pain, syncope, palpitations, irregular heart rate, lightheadedness , peripheral edema RESPIRATORY: Absent: cough, shortness of breath, dyspnea with exertion, orthopnea, wheezing, stridor, hemoptysis GASTROINTESTINAL: Absent: abdominal pain, abdominal distension, nausea, vomiting, diarrhea, constipation, melena, hematochezia GENITOURINARY: Absent: dysuria, frequency, urgency, hesitancy, hematuria, flank pain, genital pain MUSCULOSKELETAL: Absent: myalgia, arthralgia, joint swelling, back pain, neck pain SKIN: Absent: rash, itching, pallor HEMATOLOGIC/IMMUNOLOGIC: Absent: easy bleeding, easy bruising, lymphadenopathy, frequent infections ENDOCRINE: Absent: unexplained weight gain, unexplained weight loss, heat intolerance, cold intolerance NEUROLOGIC: Absent: headache, focal weakness or paresthesias, dizziness, unsteady gait, seizure, mental status changes, bladder or bowel incontinence PHYSICAL EXAMINATION Vital Signs - 24 hr 06/14/18 06/14/18 06/14/18 07:25 08:13 08:19 Temperature 98.0 F Pulse Rate 71 65 67 Respiratory 18 16 18 Rate Blood Pressure 126/87 174/104 H 140/102 H O2 Sat by Pulse 97 98 97 Oximetry (%) 06/14/18 06/14/18 06/14/18 08:25 08:30 08:40 Temperature 98.2 F Pulse Rate 67 72 75 Respiratory 19 18 18 Rate Blood Pressure 143/93 147/93 141/96 O2 Sat by Pulse 96 96 97 Oximetry (%) 06/14/18 06/14/18 09:10 09:15 Temperature 98.2 F 98.2 F Pulse Rate 71 71 Respiratory 18 18 Rate Blood Pressure 139/90 139/90 O2 Sat by Pulse 98 Oximetry (%) GENERAL: Awake, alert, and fully oriented, in no acute distress. HEAD: Normal with no signs of trauma. EYES: Pupils equal, round and reactive to light, sclera anicteric, conjunctiva clear. LUNGS: Breath sounds equal, clear to auscultation bilaterally. No wheezes, and no crackles. No accessory muscle use. HEART: Regular rate and rhythm, normal S1 and S2 ABDOMEN: Soft, nontender, not distended MUSCULOSKELETAL: Normal range of motion at all joints. No bony deformities or tenderness. No CVA tenderness. UPPER EXTREMITIES: 2+ pulses, warm, well-perfused. No cyanosis. No clubbing. No peripheral edema. LOWER EXTREMITIES: 2+ pulses, warm, well-perfused. No calf tenderness. No peripheral edema. NEUROLOGICAL: Cranial nerves II-XII intact. Normal speech. ASSESSMENT/PLAN: 32 year-old female with a PMH of major depressive disorder. She presents today for ECT. Cardiac --no cardiac history --Revised Cardiac Risk Index for Pre-Operative Risk: 0 points, 0.4% risk of major cardiac event Pulmonary --no pulmonary history Neurological --no neurological or neurosurgical history; no history of trauma Anesthesia --no reported problems with anesthesia ECT is a low risk procedure. The relative benefits of the planned procedure outweigh the relative risks for this patient at this time. Visit type - Emergency Visit Emergency Visit: No - New Patient This patient is new to me today: Yes Date on this admission: 06/14/18 - Critical Care Critical Care patient: No
== END 2018-06-14 09:15 | disposition home or self-care (01) ==
LOC: FECT 05:42
PROVIDERS: ATTEND Psychiatry & Neurology Psychiatry
PROC: GZB4ZZZ Other Electroconvulsive Therapy (ICD-10-PCS; principal; 2018-06-14 07:00)
DX: F33.2 Major depressive disorder, recurrent severe without psychotic features (principal)
CPT/HCPCS: 81025; 90870; 94760

== ENCOUNTER 2018-06-28 05:43 | Day surgery (SDC) | payer OTHER ==
[2018-06-28 06:53] VITALS: BMI 25.0
[2018-06-28] MEDS ORDERED: KETAMINE HCL 500 MG/10 ML VIAL ONE (07:17)
[2018-06-28 08:18] VITALS: TEMP 98.5
[2018-06-28 08:54] VITALS: BP 127/81; PULSE 75
== END 2018-06-28 09:02 | disposition home or self-care (01) ==
LOC: FECT 05:43
PROVIDERS: ATTEND Psychiatry & Neurology Psychiatry
PROC: GZB4ZZZ Other Electroconvulsive Therapy (ICD-10-PCS; principal; 2018-06-28 07:15)
DX: F33.2 Major depressive disorder, recurrent severe without psychotic features (principal)
CPT/HCPCS: 90870; 94760

== ENCOUNTER 2018-07-12 05:45 | Day surgery (SDC) | payer OTHER ==
[2018-07-12 06:58] VITALS: TEMP 97.8; BMI 24.2
[2018-07-12] MEDS ORDERED: KETAMINE HCL 500 MG/10 ML VIAL ONE (07:06)
[2018-07-12 09:06] VITALS: BP 130/79; PULSE 63
== END 2018-07-12 09:00 | disposition home or self-care (01) ==
LOC: FECT 05:45
PROVIDERS: ATTEND Psychiatry & Neurology Psychiatry
PROC: GZB4ZZZ Other Electroconvulsive Therapy (ICD-10-PCS; principal; 2018-07-12 07:15)
DX: F33.2 Major depressive disorder, recurrent severe without psychotic features (principal)
CPT/HCPCS: 81025; 90870; 94760

== ENCOUNTER 2018-07-26 05:39 | Day surgery (SDC) | payer OTHER ==
[2018-07-26 07:05] VITALS: BMI 24.2
--- NOTE | 2018-07-26 07:25 | HP ---
CHIEF COMPLAINT: Major Depressive Disorder PCP: Dr. Quezada, [place] Primary Psych: Dr. Kuo, [facility] [place] HISTORY OF PRESENT ILLNESS: 32 year-old female with a PMH of major depressive disorder. She presents today for ECT. 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 every day Alcohol: occasional Drugs: no Allergies cephalexin [From Keflex] Allergy (Severe, Verified 06/02/18 16:18) Difficulty Breathing raw vegetable Allergy (Severe, Verified 06/02/18 16:18) Difficulty Breathing FRUIT Allergy (Severe, Uncoded 06/02/18 16:18) Difficulty Breathing HOME MEDICATIONS: Home Medications Medication Instructions Recorded Aripiprazole [Abilify] 10 mg PO DAILY 09/23/17 Lorazepam [Ativan] 1 mg PO BID PRN 09/23/17 Bupropion HCl [Wellbutrin Xl -] 300 mg PO DAILY 11/23/17 Duloxetine HCl [Cymbalta] 60 mg PO BID 11/23/17 REVIEW OF SYSTEMS CONSTITUTIONAL: Absent: fever, chills, diaphoresis, generalized weakness, malaise, loss of appetite, weight change HEENT: Absent: rhinorrhea, nasal congestion, throat pain, throat swelling, difficulty swallowing, mouth swelling, ear pain, eye pain, visual changes CARDIOVASCULAR: Absent: chest pain, syncope, palpitations, irregular heart rate, lightheadedness , peripheral edema RESPIRATORY: Absent: cough, shortness of breath, dyspnea with exertion, orthopnea, wheezing, stridor, hemoptysis GASTROINTESTINAL: Absent: abdominal pain, abdominal distension, nausea, vomiting, diarrhea, constipation, melena, hematochezia GENITOURINARY: Absent: dysuria, frequency, urgency, hesitancy, hematuria, flank pain, genital pain MUSCULOSKELETAL: Absent: myalgia, arthralgia, joint swelling, back pain, neck pain SKIN: Absent: rash, itching, pallor HEMATOLOGIC/IMMUNOLOGIC: Absent: easy bleeding, easy bruising, lymphadenopathy, frequent infections ENDOCRINE: Absent: unexplained weight gain, unexplained weight loss, heat intolerance, cold intolerance NEUROLOGIC: Absent: headache, focal weakness or paresthesias, dizziness, unsteady gait, seizure, mental status changes, bladder or bowel incontinence PHYSICAL EXAMINATION Vital Signs - 24 hr 07/26/18 07:00 Temperature 98.1 F Pulse Rate 64 Respiratory 18 Rate Blood Pressure 118/79 O2 Sat by Pulse 98 Oximetry (%) GENERAL: Awake, alert, and fully oriented, in no acute distress. HEAD: Normal with no signs of trauma. EYES: Pupils equal, round and reactive to light, sclera anicteric, conjunctiva clear. LUNGS: Breath sounds equal, clear to auscultation bilaterally. No wheezes, and no crackles. No accessory muscle use. HEART: Regular rate and rhythm, normal S1 and S2 ABDOMEN: Soft, nontender, not distended MUSCULOSKELETAL: Normal range of motion at all joints. No bony deformities or tenderness. No CVA tenderness. UPPER EXTREMITIES: 2+ pulses, warm, well-perfused. No cyanosis. No clubbing. No peripheral edema. LOWER EXTREMITIES: 2+ pulses, warm, well-perfused. No calf tenderness. No peripheral edema. NEUROLOGICAL: Cranial nerves II-XII intact. Normal speech. ASSESSMENT/PLAN: 32 year-old female with a PMH of major depressive disorder. She presents today for ECT. Cardiac --no cardiac history --Revised Cardiac Risk Index for Pre-Operative Risk: 0 points, 0.4% risk of major cardiac event Pulmonary --no pulmonary history Neurological --no neurological or neurosurgical history; no history of trauma Anesthesia --no reported problems with anesthesia ECT is a low risk procedure. The relative benefits of the planned procedure outweigh the relative risks for this patient at this time. Visit type - Emergency Visit Emergency Visit: No - New Patient This patient is new to me today: Yes Date on this admission: 07/26/18 - Critical Care Critical Care patient: No
[2018-07-26] MEDS ORDERED: KETAMINE HCL 500 MG/10 ML VIAL ONE (07:34)
[2018-07-26 09:06] VITALS: BP 118/74; PULSE 75
[2018-07-26 10:10] VITALS: TEMP 97.6
== END 2018-07-26 09:40 | disposition home or self-care (01) ==
LOC: FECT 05:39
PROVIDERS: ATTEND Psychiatry & Neurology Psychiatry
PROC: GZB4ZZZ Other Electroconvulsive Therapy (ICD-10-PCS; principal; 2018-07-26 07:00)
DX: F33.2 Major depressive disorder, recurrent severe without psychotic features (principal)
CPT/HCPCS: 81025; 90870; 94760

== ENCOUNTER 2018-08-16 05:36 | Day surgery (SDC) | payer OTHER ==
[2018-08-16 06:55] VITALS: BMI 24.2
[2018-08-16] MEDS ORDERED: KETAMINE HCL 500 MG/10 ML VIAL ONE (07:24)
[2018-08-16] MEDS ORDERED: LABETALOL HCL 5 MG/1 ML (100MG/20 ML VIAL) ONE (07:58)
[2018-08-16 08:44] VITALS: TEMP 98.9
[2018-08-16 09:05] VITALS: BP 129/86; PULSE 73
== END 2018-08-16 09:15 | disposition home or self-care (01) ==
LOC: FECT 05:36
PROVIDERS: ATTEND Psychiatry & Neurology Psychiatry
PROC: GZB4ZZZ Other Electroconvulsive Therapy (ICD-10-PCS; principal; 2018-08-16 07:00)
DX: F32.9 Major depressive disorder, single episode, unspecified (principal)
CPT/HCPCS: 81025; 90870; 94760

== ENCOUNTER 2018-09-06 05:34 | Day surgery (SDC) | payer OTHER | END 2018-09-06 09:23 | disposition home or self-care (01) | LOC: FECT 05:34 ==

== ENCOUNTER 2018-09-27 05:44 | Day surgery (SDC) | payer OTHER ==
[2018-09-21 15:13] VITALS: BMI 25.0
[2018-09-27 07:18] VITALS: TEMP 98.5
[2018-09-27] MEDS ORDERED: KETAMINE HCL 500 MG/10 ML VIAL ONE (07:36)
[2018-09-27] MEDS ORDERED: LABETALOL HCL 5 MG/1 ML (100MG/20 ML VIAL) IVPUSH ONE (08:45)
[2018-09-27 09:37] VITALS: BP 135/90; PULSE 61
[2018-09-27 09:58] LABS: BASO % 0.9 % (0-2.0); EOS % 2.8 % (0-4.5); HEMOGLOBIN 14.3 GM/dl (10.7-15.3); LYMPH % 32.2 % (8-40); MEAN CELL VOLUME 97.2 fl (80-96); MEAN PLT VOLUME 8.3 fl (7.5-11.1); MONO % 7.3 % (3.8-10.2); NEUT % 56.8 % (42.8-82.8); PLATELET COUNT 294 K/MM3 (134-434); RBC 4.32 M/mm3 (3.60-5.2); RDW 11.5 % (11.6-15.6); WHITE BLOOD COUNT 5.3 K/mm3 (4.0-10.8)
[2018-09-27 10:01] LABS: BILIRUBIN,TOTAL 0.8 mg/dl (0.2-1); CALCIUM 8.6 mg/dl (8.5-10); CREATININE 0.7 mg/dl (0.55-1.3); MAGNESIUM 1.9 mg/dL (1.8-2.4); POTASSIUM 4.1 mmol/L (3.5-5.1); TOT PROT 6.2 g/dl (6.4-8.2)
--- NOTE | 2018-09-27 10:39 | EKG ---
Test Reason : Blood Pressure : / mmHG Vent. Rate : 060 BPM Atrial Rate : 060 BPM P-R Int : 110 ms QRS Dur : 078 ms QT Int : 442 ms P-R-T Axes : -13 062 049 degrees QTc Int : 442 ms SINUS RHYTHM WITH SHORT AR OTHERWISE NORMAL ECG WHEN COMPARED WITH ECG OF 22-MAR-2018 09:07, NO SIGNIFICANT CHANGE WAS FOUND Confirmed by CHAPIS ADAMES MD ([id number]) on 09/27/2018 10:39:06 AM Referred By: Gabe Mckenzie Confirmed By:CHAPIS ADAMES MD
== END 2018-09-27 09:35 | disposition home or self-care (01) ==
LOC: FECT 05:44
PROVIDERS: ATTEND Psychiatry & Neurology Psychiatry
PROC: GZB4ZZZ Other Electroconvulsive Therapy (ICD-10-PCS; principal; 2018-09-27 07:15)
DX: F33.2 Major depressive disorder, recurrent severe without psychotic features (principal)
CPT/HCPCS: 36415; 80053; 81025; 83735; 85025; 90870; 93005; 94760

== ENCOUNTER 2018-10-18 05:38 | Day surgery (SDC) | payer OTHER ==
[2018-10-18 07:22] VITALS: BMI 25.0
[2018-10-18] MEDS ORDERED: KETAMINE HCL 500 MG/10 ML VIAL ONE (07:41)
[2018-10-18 08:59] VITALS: TEMP 98.3
[2018-10-18 09:16] VITALS: BP 140/92; PULSE 71
--- NOTE | 2018-10-19 00:02 | HP ---
CHIEF COMPLAINT: Major Depressive Disorder PCP: Dr. Quezada, [place] Primary Psych: Dr. Kuo, [facility] [place] HISTORY OF PRESENT ILLNESS: 32 year-old female with a PMH of major depressive disorder. She presents today for ECT. 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 Smoking: current every day Alcohol: occasional Drugs: no Allergies cephalexin [From Keflex] Allergy (Severe, Verified 09/21/18 15:06) Difficulty Breathing raw vegetable Allergy (Severe, Verified 09/21/18 15:06) Difficulty Breathing FRUIT Allergy (Severe, Uncoded 09/21/18 15:06) Difficulty Breathing HOME MEDICATIONS: Home Medications Medication Instructions Recorded Aripiprazole [Abilify] 10 mg PO DAILY 09/23/17 Lorazepam [Ativan] 1 mg PO BID PRN 09/23/17 Bupropion HCl [Wellbutrin Xl -] 300 mg PO DAILY 11/23/17 Duloxetine HCl [Cymbalta] 60 mg PO BID 11/23/17 REVIEW OF SYSTEMS CONSTITUTIONAL: Absent: fever, chills, diaphoresis, generalized weakness, malaise, loss of appetite, weight change HEENT: Absent: rhinorrhea, nasal congestion, throat pain, throat swelling, difficulty swallowing, mouth swelling, ear pain, eye pain, visual changes CARDIOVASCULAR: Absent: chest pain, syncope, palpitations, irregular heart rate, lightheadedness , peripheral edema RESPIRATORY: Absent: cough, shortness of breath, dyspnea with exertion, orthopnea, wheezing, stridor, hemoptysis GASTROINTESTINAL: Absent: abdominal pain, abdominal distension, nausea, vomiting, diarrhea, constipation, melena, hematochezia GENITOURINARY: Absent: dysuria, frequency, urgency, hesitancy, hematuria, flank pain, genital pain MUSCULOSKELETAL: Absent: myalgia, arthralgia, joint swelling, back pain, neck pain SKIN: Absent: rash, itching, pallor HEMATOLOGIC/IMMUNOLOGIC: Absent: easy bleeding, easy bruising, lymphadenopathy, frequent infections ENDOCRINE: Absent: unexplained weight gain, unexplained weight loss, heat intolerance, cold intolerance NEUROLOGIC: Absent: headache, focal weakness or paresthesias, dizziness, unsteady gait, seizure, mental status changes, bladder or bowel incontinence PHYSICAL EXAMINATION Vital Signs - 24 hr 10/18/18 10/18/18 10/18/18 07:15 08:00 08:05 Temperature 98.6 F Pulse Rate 79 80 84 Respiratory 18 18 11 Rate Blood Pressure 129/80 160/90 150/109 H O2 Sat by Pulse 97 99 100 Oximetry (%) 10/18/18 10/18/18 10/18/18 08:10 08:15 08:22 Temperature Pulse Rate 76 75 75 Respiratory 12 12 12 Rate Blood Pressure 144/97 146/96 144/98 O2 Sat by Pulse 100 100 100 Oximetry (%) 10/18/18 10/18/18 10/18/18 08:40 09:15 09:20 Temperature 98.3 F 98.3 F 98.3 F Pulse Rate 74 71 71 Respiratory 18 18 18 Rate Blood Pressure 144/94 140/92 140/92 O2 Sat by Pulse 97 99 Oximetry (%) GENERAL: Awake, alert, and fully oriented, in no acute distress. HEAD: Normal with no signs of trauma. EYES: Pupils equal, round and reactive to light, sclera anicteric, conjunctiva clear. LUNGS: Breath sounds equal, clear to auscultation bilaterally. No wheezes, and no crackles. No accessory muscle use. HEART: Regular rate and rhythm, normal S1 and S2 ABDOMEN: Soft, nontender, not distended MUSCULOSKELETAL: Normal range of motion at all joints. No bony deformities or tenderness. No CVA tenderness. UPPER EXTREMITIES: 2+ pulses, warm, well-perfused. No cyanosis. No clubbing. No peripheral edema. LOWER EXTREMITIES: 2+ pulses, warm, well-perfused. No calf tenderness. No peripheral edema. NEUROLOGICAL: Cranial nerves II-XII intact. Normal speech. Laboratory Results - last 24 hr 10/18/18 07:23 POC Urine HCG, Qual Negative ASSESSMENT/PLAN: 32 year-old female with a PMH of major depressive disorder. She presents today for ECT. Cardiac --no cardiac history --Revised Cardiac Risk Index for Pre-Operative Risk: 0 points, 0.4% risk of major cardiac event Pulmonary --no pulmonary history Neurological --no neurological or neurosurgical history; no history of trauma Anesthesia --no reported problems with anesthesia ECT is a low risk procedure. The relative benefits of the planned procedure outweigh the relative risks for this patient at this time. Visit type - Emergency Visit Emergency Visit: No - New Patient This patient is new to me today: Yes Date on this admission: 10/19/18 - Critical Care Critical Care patient: No
== END 2018-10-18 09:20 | disposition home or self-care (01) ==
LOC: FECT 05:38
PROVIDERS: ATTEND Psychiatry & Neurology Psychiatry
PROC: GZB4ZZZ Other Electroconvulsive Therapy (ICD-10-PCS; principal; 2018-10-18 07:00)
DX: F33.2 Major depressive disorder, recurrent severe without psychotic features (principal)
CPT/HCPCS: 81025; 90870; 94760

== ENCOUNTER 2018-11-08 05:44 | Day surgery (SDC) | payer OTHER ==
[2018-11-02 11:56] VITALS: BMI 25.0
[2018-11-08] MEDS ORDERED: KETAMINE HCL 500 MG/10 ML VIAL ONE (07:10)
[2018-11-08 08:12] VITALS: TEMP 98.4
[2018-11-08 08:37] VITALS: PULSE 87
[2018-11-08 08:48] VITALS: BP 139/89
== END 2018-11-08 08:35 | disposition home or self-care (01) ==
LOC: FECT 05:44
PROVIDERS: ATTEND Psychiatry & Neurology Psychiatry
PROC: GZB4ZZZ Other Electroconvulsive Therapy (ICD-10-PCS; principal; 2018-11-08 07:00)
DX: F33.2 Major depressive disorder, recurrent severe without psychotic features (principal)
CPT/HCPCS: 81025; 90870; 94760

== ENCOUNTER 2018-11-29 05:46 | Day surgery (SDC) | payer OTHER ==
[2018-11-22 15:19] VITALS: BMI 25.0
[2018-11-29 07:12] VITALS: TEMP 98.9
[2018-11-29] MEDS ORDERED: KETAMINE HCL 500 MG/10 ML VIAL ONE (08:31)
[2018-11-29] MEDS ORDERED: ACETAMINOPHEN 325 MG TABLET (FP) PO PRN (09:07)
[2018-11-29 10:25] VITALS: BP 136/89; PULSE 89
--- NOTE | 2018-11-30 10:24 | HP ---
CHIEF COMPLAINT: Major Depressive Disorder PCP: Dr. Quezada, [place] Primary Psych: Dr. Kuo, [facility] [place] HISTORY OF PRESENT ILLNESS: 32 year-old female with a PMH of major depressive disorder. She presents today for ECT. 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 Smoking: current every day Alcohol: occasional Drugs: no Family history: non-contributory HOME MEDICATIONS: Home Medications Medication Instructions Recorded Aripiprazole [Abilify] 10 mg PO DAILY 09/23/17 Lorazepam [Ativan] 1 mg PO BID PRN 09/23/17 Bupropion HCl [Wellbutrin Xl -] 300 mg PO DAILY 11/23/17 Duloxetine HCl [Cymbalta] 60 mg PO BID 11/23/17 REVIEW OF SYSTEMS CONSTITUTIONAL: Absent: fever, chills, diaphoresis, generalized weakness, malaise, loss of appetite, weight change HEENT: Absent: rhinorrhea, nasal congestion, throat pain, throat swelling, difficulty swallowing, mouth swelling, ear pain, eye pain, visual changes CARDIOVASCULAR: Absent: chest pain, syncope, palpitations, irregular heart rate, lightheadedness , peripheral edema RESPIRATORY: Absent: cough, shortness of breath, dyspnea with exertion, orthopnea, wheezing, stridor, hemoptysis GASTROINTESTINAL: Absent: abdominal pain, abdominal distension, nausea, vomiting, diarrhea, constipation, melena, hematochezia GENITOURINARY: Absent: dysuria, frequency, urgency, hesitancy, hematuria, flank pain, genital pain MUSCULOSKELETAL: Absent: myalgia, arthralgia, joint swelling, back pain, neck pain SKIN: Absent: rash, itching, pallor HEMATOLOGIC/IMMUNOLOGIC: Absent: easy bleeding, easy bruising, lymphadenopathy, frequent infections ENDOCRINE: Absent: unexplained weight gain, unexplained weight loss, heat intolerance, cold intolerance NEUROLOGIC: Absent: headache, focal weakness or paresthesias, dizziness, unsteady gait, seizure, mental status changes, bladder or bowel incontinence PHYSICAL EXAMINATION Vital Signs Temperature 98.9 F 11/29/18 10:00 Pulse Rate 89 11/29/18 10:00 Respiratory Rate 18 11/29/18 10:00 Blood Pressure 136/89 11/29/18 10:00 O2 Sat by Pulse Oximetry (%) 99 11/29/18 09:50 GENERAL: Awake, alert, and fully oriented, in no acute distress. HEAD: Normal with no signs of trauma. EYES: Pupils equal, round and reactive to light, sclera anicteric, conjunctiva clear. LUNGS: Breath sounds equal, clear to auscultation bilaterally. No wheezes, and no crackles. No accessory muscle use. HEART: Regular rate and rhythm, normal S1 and S2 ABDOMEN: Soft, nontender, not distended MUSCULOSKELETAL: Normal range of motion at all joints. No bony deformities or tenderness. No CVA tenderness. UPPER EXTREMITIES: 2+ pulses, warm, well-perfused. No cyanosis. No clubbing. No peripheral edema. LOWER EXTREMITIES: 2+ pulses, warm, well-perfused. No calf tenderness. No peripheral edema. NEUROLOGICAL: Cranial nerves II-XII intact. Normal speech. ASSESSMENT/PLAN: 32 year-old female with a PMH of major depressive disorder. She presents today for ECT. Cardiac --no cardiac history --Revised Cardiac Risk Index for Pre-Operative Risk: 0 points, 0.4% risk of major cardiac event Pulmonary --no pulmonary history Neurological --no neurological or neurosurgical history; no history of trauma Anesthesia --no reported problems with anesthesia ECT is a low risk procedure. The relative benefits of the planned procedure outweigh the relative risks for this patient at this time. Visit type - Emergency Visit Emergency Visit: No - New Patient This patient is new to me today: Yes Date on this admission: 11/30/18 - Critical Care Critical Care patient: No
== END 2018-11-29 10:00 | disposition home or self-care (01) ==
LOC: FECT 05:46
PROVIDERS: ATTEND Psychiatry & Neurology Psychiatry
PROC: GZB4ZZZ Other Electroconvulsive Therapy (ICD-10-PCS; principal; 2018-11-29 07:00)
DX: F33.2 Major depressive disorder, recurrent severe without psychotic features (principal)
CPT/HCPCS: 81025; 90870; 94760

== ENCOUNTER 2018-12-20 05:34 | Day surgery (SDC) | payer OTHER | END 2018-12-20 08:45 | disposition home or self-care (01) | LOC: FECT 05:34 ==

== ENCOUNTER 2019-01-10 05:35 | Day surgery (SDC) | payer OTHER ==
[2019-01-10 06:36] VITALS: TEMP 98.3; BMI 25.0
[2019-01-10] MEDS ORDERED: KETAMINE HCL 500 MG/10 ML VIAL ONE (07:33)
--- NOTE | 2019-01-10 07:42 | HP ---
CHIEF COMPLAINT: Major Depressive Disorder PCP: Dr. Quezada, [place] Primary Psych: Dr. Kuo, [facility] [place] HISTORY OF PRESENT ILLNESS: 32 year-old female with a PMH of major depressive disorder. She presents today for ECT. 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 Smoking: current every day Alcohol: occasional Drugs: no Family history: non-contributory Allergies cephalexin [From Keflex] Allergy (Severe, Verified 11/22/18 15:17) Difficulty Breathing raw vegetable Allergy (Severe, Verified 11/22/18 15:17) Difficulty Breathing FRUIT Allergy (Severe, Uncoded 11/22/18 15:17) Difficulty Breathing HOME MEDICATIONS: Home Medications Medication Instructions Recorded Aripiprazole [Abilify] 10 mg PO DAILY 09/23/17 Lorazepam [Ativan] 1 mg PO BID PRN 09/23/17 Bupropion HCl [Wellbutrin Xl -] 300 mg PO DAILY 11/23/17 Duloxetine HCl [Cymbalta] 60 mg PO BID 11/23/17 REVIEW OF SYSTEMS CONSTITUTIONAL: Absent: fever, chills, diaphoresis, generalized weakness, malaise, loss of appetite, weight change HEENT: Absent: rhinorrhea, nasal congestion, throat pain, throat swelling, difficulty swallowing, mouth swelling, ear pain, eye pain, visual changes CARDIOVASCULAR: Absent: chest pain, syncope, palpitations, irregular heart rate, lightheadedness , peripheral edema RESPIRATORY: Absent: cough, shortness of breath, dyspnea with exertion, orthopnea, wheezing, stridor, hemoptysis GASTROINTESTINAL: Absent: abdominal pain, abdominal distension, nausea, vomiting, diarrhea, constipation, melena, hematochezia GENITOURINARY: Absent: dysuria, frequency, urgency, hesitancy, hematuria, flank pain, genital pain MUSCULOSKELETAL: Absent: myalgia, arthralgia, joint swelling, back pain, neck pain SKIN: Absent: rash, itching, pallor HEMATOLOGIC/IMMUNOLOGIC: Absent: easy bleeding, easy bruising, lymphadenopathy, frequent infections ENDOCRINE: Absent: unexplained weight gain, unexplained weight loss, heat intolerance, cold intolerance NEUROLOGIC: Absent: headache, focal weakness or paresthesias, dizziness, unsteady gait, seizure, mental status changes, bladder or bowel incontinence PHYSICAL EXAMINATION Vital Signs - 24 hr 01/10/19 06:32 Temperature 98.3 F Pulse Rate 75 Respiratory 18 Rate Blood Pressure 128/89 O2 Sat by Pulse 94 L Oximetry (%) GENERAL: Awake, alert, and fully oriented, in no acute distress. HEAD: Normal with no signs of trauma. EYES: Pupils equal, round and reactive to light, sclera anicteric, conjunctiva clear. LUNGS: Breath sounds equal, clear to auscultation bilaterally. No wheezes, and no crackles. No accessory muscle use. HEART: Regular rate and rhythm, normal S1 and S2 ABDOMEN: Soft, nontender, not distended MUSCULOSKELETAL: Normal range of motion at all joints. No bony deformities or tenderness. No CVA tenderness. UPPER EXTREMITIES: 2+ pulses, warm, well-perfused. No cyanosis. No clubbing. No peripheral edema. LOWER EXTREMITIES: 2+ pulses, warm, well-perfused. No calf tenderness. No peripheral edema. NEUROLOGICAL: Cranial nerves II-XII intact. Normal speech. ASSESSMENT/PLAN: 32 year-old female with a PMH of major depressive disorder. She presents today for ECT. Cardiac --no cardiac history --Revised Cardiac Risk Index for Pre-Operative Risk: 0 points, 0.4% risk of major cardiac event Pulmonary --no pulmonary history Neurological --no neurological or neurosurgical history; no history of trauma Anesthesia --no reported problems with anesthesia ECT is a low risk procedure. The relative benefits of the planned procedure outweigh the relative risks for this patient at this time. Visit type - Emergency Visit Emergency Visit: No - New Patient This patient is new to me today: Yes Date on this admission: 01/10/19 - Critical Care Critical Care patient: No
[2019-01-10 09:04] VITALS: BP 130/92; PULSE 64
== END 2019-01-10 09:05 | disposition home or self-care (01) ==
LOC: FECT 05:35
PROVIDERS: ATTEND Psychiatry & Neurology Psychiatry
PROC: GZB4ZZZ Other Electroconvulsive Therapy (ICD-10-PCS; principal; 2019-01-10 07:00)
DX: F33.2 Major depressive disorder, recurrent severe without psychotic features (principal)
CPT/HCPCS: 81025; 90870; 94760

== ENCOUNTER 2019-01-31 05:41 | Day surgery (SDC) | payer OTHER ==
[2019-01-31 07:03] VITALS: BMI 25.0
[2019-01-31] MEDS ORDERED: KETAMINE HCL 500 MG/10 ML VIAL ONE (07:22)
[2019-01-31 08:35] VITALS: TEMP 98.1
[2019-01-31 09:12] VITALS: BP 126/90; PULSE 72
== END 2019-01-31 09:13 | disposition home or self-care (01) ==
LOC: FECT 05:41
PROVIDERS: ATTEND Psychiatry & Neurology Psychiatry
PROC: GZB4ZZZ Other Electroconvulsive Therapy (ICD-10-PCS; principal; 2019-01-31 07:15)
DX: F33.2 Major depressive disorder, recurrent severe without psychotic features (principal)
CPT/HCPCS: 81025; 90870; 94760

== ENCOUNTER 2019-02-28 05:42 | Day surgery (SDC) | payer OTHER ==
[2019-02-28 07:48] VITALS: TEMP 98; BMI 25.0
[2019-02-28] MEDS ORDERED: KETAMINE HCL 500 MG/10 ML VIAL ONE (08:55)
[2019-02-28 10:22] VITALS: BP 130/89; PULSE 71
--- NOTE | 2019-02-28 18:38 | HP ---
CHIEF COMPLAINT: Major Depressive Disorder PCP: Dr. Quezada, [place] Primary Psych: Dr. Kuo, [facility] [place] HISTORY OF PRESENT ILLNESS: 32 year-old female with a PMH of major depressive disorder. She presents today for ECT. 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 Smoking: current every day Alcohol: occasional Drugs: no Family history: non-contributory Allergies cephalexin [From Keflex] Allergy (Severe, Verified 01/31/19 06:59) Difficulty Breathing raw vegetable Allergy (Severe, Verified 01/31/19 06:59) Difficulty Breathing FRUIT Allergy (Severe, Uncoded 01/31/19 06:59) Difficulty Breathing HOME MEDICATIONS: Home Medications Medication Instructions Recorded Aripiprazole [Abilify] 10 mg PO DAILY 09/23/17 Lorazepam [Ativan] 1 mg PO BID PRN 09/23/17 Bupropion HCl [Wellbutrin Xl -] 300 mg PO DAILY 11/23/17 Duloxetine HCl [Cymbalta] 60 mg PO BID 11/23/17 REVIEW OF SYSTEMS CONSTITUTIONAL: Absent: fever, chills, diaphoresis, generalized weakness, malaise, loss of appetite, weight change HEENT: Absent: rhinorrhea, nasal congestion, throat pain, throat swelling, difficulty swallowing, mouth swelling, ear pain, eye pain, visual changes CARDIOVASCULAR: Absent: chest pain, syncope, palpitations, irregular heart rate, lightheadedness , peripheral edema RESPIRATORY: Absent: cough, shortness of breath, dyspnea with exertion, orthopnea, wheezing, stridor, hemoptysis GASTROINTESTINAL: Absent: abdominal pain, abdominal distension, nausea, vomiting, diarrhea, constipation, melena, hematochezia GENITOURINARY: Absent: dysuria, frequency, urgency, hesitancy, hematuria, flank pain, genital pain MUSCULOSKELETAL: Absent: myalgia, arthralgia, joint swelling, back pain, neck pain SKIN: Absent: rash, itching, pallor HEMATOLOGIC/IMMUNOLOGIC: Absent: easy bleeding, easy bruising, lymphadenopathy, frequent infections ENDOCRINE: Absent: unexplained weight gain, unexplained weight loss, heat intolerance, cold intolerance NEUROLOGIC: Absent: headache, focal weakness or paresthesias, dizziness, unsteady gait, seizure, mental status changes, bladder or bowel incontinence PHYSICAL EXAMINATION Vital Signs - 24 hr 02/28/19 02/28/19 02/28/19 07:41 09:10 09:15 Temperature 98.0 F Pulse Rate 70 78 79 Respiratory 18 16 16 Rate Blood Pressure 122/82 151/90 145/96 O2 Sat by Pulse 97 95 99 Oximetry (%) 02/28/19 02/28/19 02/28/19 09:20 09:25 09:30 Temperature Pulse Rate 80 77 80 Respiratory 16 16 16 Rate Blood Pressure 140/92 150/88 147/91 O2 Sat by Pulse 99 99 99 Oximetry (%) 02/28/19 02/28/19 02/28/19 09:40 09:45 10:15 Temperature 98.0 F 98.0 F 98.0 F Pulse Rate 80 77 71 Respiratory 16 18 18 Rate Blood Pressure 147/91 135/91 130/89 O2 Sat by Pulse 99 100 99 Oximetry (%) 02/28/19 10:20 Temperature 98.0 F Pulse Rate 71 Respiratory 18 Rate Blood Pressure 130/89 O2 Sat by Pulse Oximetry (%) GENERAL: Awake, alert, and fully oriented, in no acute distress. HEAD: Normal with no signs of trauma. EYES: Pupils equal, round and reactive to light, sclera anicteric, conjunctiva clear. LUNGS: Breath sounds equal, clear to auscultation bilaterally. No wheezes, and no crackles. No accessory muscle use. HEART: Regular rate and rhythm, normal S1 and S2 ABDOMEN: Soft, nontender, not distended MUSCULOSKELETAL: Normal range of motion at all joints. No bony deformities or tenderness. No CVA tenderness. UPPER EXTREMITIES: 2+ pulses, warm, well-perfused. No cyanosis. No clubbing. No peripheral edema. LOWER EXTREMITIES: 2+ pulses, warm, well-perfused. No calf tenderness. No peripheral edema. NEUROLOGICAL: Cranial nerves II-XII intact. Normal speech. Laboratory Results - last 24 hr 02/28/19 07:30 Urine HCG, Qual Negative ASSESSMENT/PLAN: 32 year-old female with a PMH of major depressive disorder. She presents today for ECT. Cardiac --no cardiac history --Revised Cardiac Risk Index for Pre-Operative Risk: 0 points, 0.4% risk of major cardiac event Pulmonary --no pulmonary history Neurological --no neurological or neurosurgical history; no history of trauma Anesthesia --no reported problems with anesthesia ECT is a low risk procedure. The relative benefits of the planned procedure outweigh the relative risks for this patient at this time. Visit type - Emergency Visit Emergency Visit: No - New Patient This patient is new to me today: Yes Date on this admission: 02/28/19 - Critical Care Critical Care patient: No
== END 2019-02-28 10:20 | disposition home or self-care (01) ==
LOC: FECT 05:42
PROVIDERS: ATTEND Psychiatry & Neurology Psychiatry
PROC: GZB4ZZZ Other Electroconvulsive Therapy (ICD-10-PCS; principal; 2019-02-28 07:00)
DX: F33.2 Major depressive disorder, recurrent severe without psychotic features (principal)
CPT/HCPCS: 84703; 90870; 94760

== ENCOUNTER 2019-03-28 05:39 | Day surgery (SDC) | payer OTHER ==
[2019-03-28] MEDS ORDERED: LACTATED RINGERS SOLUTION 1,000 ML IV SCH (06:45)
[2019-03-28 07:33] VITALS: BMI 25.0
[2019-03-28] MEDS ORDERED: KETAMINE HCL 500 MG/10 ML VIAL ONE (08:49)
[2019-03-28 09:11] LABS: BASO % 1.1 % (0-2.0); EOS % 3.1 % (0-4.5); HEMATOCRIT 43.3 % (32.4-45.2); HEMOGLOBIN 14.4 GM/dl (10.7-15.3); MCH 31.3 pg (25.7-33.7); MCHC 33.2 g/dl (32.0-36.0); MEAN CELL VOLUME 94.2 fl (80-96); MEAN PLT VOLUME 8.2 fl (7.5-11.1); MONO % 5.6 % (3.8-10.2); NEUT % 62.2 % (42.8-82.8); PLATELET COUNT 344 K/MM3 (134-434); RDW 11.9 % (11.6-15.6); WHITE BLOOD COUNT 5.3 K/mm3 (4.0-10.8)
[2019-03-28 09:32] LABS: ALBUMIN 3.9 g/dl (3.4-5.0); BILIRUBIN,TOTAL 0.7 mg/dl (0.2-1); CALCIUM 8.9 mg/dl (8.5-10); CREATININE 0.7 mg/dl (0.55-1.3); MAGNESIUM 1.8 mg/dL (1.8-2.4); POTASSIUM 4.2 mmol/L (3.5-5.1); TOT PROT 6.1 g/dl (6.4-8.2)
[2019-03-28 10:06] VITALS: PULSE 66
[2019-03-28 10:48] VITALS: BP 124/78; TEMP 98
--- NOTE | 2019-03-31 10:30 | EKG ---
Test Reason : Blood Pressure : / mmHG Vent. Rate : 068 BPM Atrial Rate : 068 BPM P-R Int : 138 ms QRS Dur : 076 ms QT Int : 426 ms P-R-T Axes : 051 044 034 degrees QTc Int : 452 ms NORMAL SINUS RHYTHM ANTERIOR INFARCT , AGE UNDETERMINED ABNORMAL ECG WHEN COMPARED WITH ECG OF 27-SEP-2018 09:29, NO SIGNIFICANT CHANGE WAS FOUND Confirmed by ERUM KHANNA, FILIBERTO ([id number]) on 03/31/2019 10:30:35 AM Referred By: Gabe Mckenzie Confirmed By:FILIBERTO DANIELSON MD
--- NOTE | 2019-04-08 13:30 | HP ---
CHIEF COMPLAINT: Major Depressive Disorder PCP: Dr. Quezada, [place] Primary Psych: Dr. Kuo, [facility] [place] HISTORY OF PRESENT ILLNESS: 32 year-old female with a PMH of major depressive disorder. She presents today for ECT. 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 Smoking: current every day Alcohol: occasional Drugs: no Family history: non-contributory Allergies cephalexin [From Keflex] Allergy (Severe, Verified 01/31/19 06:59) Difficulty Breathing raw vegetable Allergy (Severe, Verified 01/31/19 06:59) Difficulty Breathing FRUIT Allergy (Severe, Uncoded 01/31/19 06:59) Difficulty Breathing HOME MEDICATIONS: Home Medications Medication Instructions Recorded Aripiprazole [Abilify] 10 mg PO DAILY 09/23/17 Lorazepam [Ativan] 1 mg PO BID PRN 09/23/17 Bupropion HCl [Wellbutrin Xl -] 300 mg PO DAILY 11/23/17 Duloxetine HCl [Cymbalta] 60 mg PO BID 11/23/17 REVIEW OF SYSTEMS CONSTITUTIONAL: Absent: fever, chills, diaphoresis, generalized weakness, malaise, loss of appetite, weight change HEENT: Absent: rhinorrhea, nasal congestion, throat pain, throat swelling, difficulty swallowing, mouth swelling, ear pain, eye pain, visual changes CARDIOVASCULAR: Absent: chest pain, syncope, palpitations, irregular heart rate, lightheadedness , peripheral edema RESPIRATORY: Absent: cough, shortness of breath, dyspnea with exertion, orthopnea, wheezing, stridor, hemoptysis GASTROINTESTINAL: Absent: abdominal pain, abdominal distension, nausea, vomiting, diarrhea, constipation, melena, hematochezia GENITOURINARY: Absent: dysuria, frequency, urgency, hesitancy, hematuria, flank pain, genital pain MUSCULOSKELETAL: Absent: myalgia, arthralgia, joint swelling, back pain, neck pain SKIN: Absent: rash, itching, pallor HEMATOLOGIC/IMMUNOLOGIC: Absent: easy bleeding, easy bruising, lymphadenopathy, frequent infections ENDOCRINE: Absent: unexplained weight gain, unexplained weight loss, heat intolerance, cold intolerance NEUROLOGIC: Absent: headache, focal weakness or paresthesias, dizziness, unsteady gait, seizure, mental status changes, bladder or bowel incontinence PHYSICAL EXAMINATION Vital Signs Temperature 98 F 03/28/19 10:20 Pulse Rate 66 03/28/19 10:20 Respiratory Rate 18 03/28/19 10:20 Blood Pressure 124/78 03/28/19 10:20 O2 Sat by Pulse Oximetry (%) 98 03/28/19 10:00 GENERAL: Awake, alert, and fully oriented, in no acute distress. HEAD: Normal with no signs of trauma. EYES: Pupils equal, round and reactive to light, sclera anicteric, conjunctiva clear. LUNGS: Breath sounds equal, clear to auscultation bilaterally. No wheezes, and no crackles. No accessory muscle use. HEART: Regular rate and rhythm, normal S1 and S2 ABDOMEN: Soft, nontender, not distended MUSCULOSKELETAL: Normal range of motion at all joints. No bony deformities or tenderness. No CVA tenderness. UPPER EXTREMITIES: 2+ pulses, warm, well-perfused. No cyanosis. No clubbing. No peripheral edema. LOWER EXTREMITIES: 2+ pulses, warm, well-perfused. No calf tenderness. No peripheral edema. NEUROLOGICAL: Cranial nerves II-XII intact. Normal speech. ASSESSMENT/PLAN: 32 year-old female with a PMH of major depressive disorder. She presents today for ECT. Cardiac --no cardiac history --Revised Cardiac Risk Index for Pre-Operative Risk: 0 points, 0.4% risk of major cardiac event Pulmonary --no pulmonary history Neurological --no neurological or neurosurgical history; no history of trauma Anesthesia --no reported problems with anesthesia ECT is a low risk procedure. The relative benefits of the planned procedure outweigh the relative risks for this patient at this time. Visit type - Emergency Visit Emergency Visit: No - New Patient This patient is new to me today: Yes Date on this admission: 04/08/19 - Critical Care Critical Care patient: No
== END 2019-03-28 10:25 | disposition home or self-care (01) ==
LOC: FECT 05:39
PROVIDERS: ATTEND Psychiatry & Neurology Psychiatry
PROC: GZB4ZZZ Other Electroconvulsive Therapy (ICD-10-PCS; principal; 2019-03-28 07:00)
DX: F33.2 Major depressive disorder, recurrent severe without psychotic features (principal)
CPT/HCPCS: 36415; 80053; 83735; 84703; 85025; 90870; 93005; 94760

== ENCOUNTER 2019-05-02 05:38 | Day surgery (SDC) | payer OTHER ==
[2019-05-02] MEDS ORDERED: oxyCODONE HCL 5 MG TABLET PO PRN (06:49)
[2019-05-02] MEDS ORDERED: ONDANSETRON 4 MG/2 ML VIAL IVPUSH PRN (06:49)
[2019-05-02] MEDS ORDERED: LACTATED RINGERS SOLUTION 1,000 ML IV SCH (07:00)
[2019-05-02 07:22] VITALS: BMI 25.0
[2019-05-02] MEDS ORDERED: KETAMINE HCL 500 MG/10 ML VIAL ONE (07:54)
--- NOTE | 2019-05-02 08:41 | HP ---
CHIEF COMPLAINT: Major Depressive Disorder PCP: Dr. Quezada, [place] Primary Psych: [place] [facility] [place]ORY OF PRESENT ILLNESS: 32 year-old female with a PMH of major depressive disorder. She presents today for ECT. 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 Smoking: current every day Alcohol: occasional Drugs: no Family history: non-contributory Allergies cephalexin [From Keflex] Allergy (Severe, Verified 01/31/19 06:59) Difficulty Breathing raw vegetable Allergy (Severe, Verified 01/31/19 06:59) Difficulty Breathing FRUIT Allergy (Severe, Uncoded 01/31/19 06:59) Difficulty Breathing HOME MEDICATIONS: Home Medications Medication Instructions Recorded Aripiprazole [Abilify] 10 mg PO DAILY 09/23/17 Lorazepam [Ativan] 1 mg PO BID PRN 09/23/17 Bupropion HCl [Wellbutrin Xl -] 300 mg PO DAILY 11/23/17 Duloxetine HCl [Cymbalta] 60 mg PO BID 11/23/17 Methylphenidate HCl [Ritalin LA] 10 mg PO DAILY PRN 05/02/19 REVIEW OF SYSTEMS CONSTITUTIONAL: Absent: fever, chills, diaphoresis, generalized weakness, malaise, loss of appetite, weight change HEENT: Absent: rhinorrhea, nasal congestion, throat pain, throat swelling, difficulty swallowing, mouth swelling, ear pain, eye pain, visual changes CARDIOVASCULAR: Absent: chest pain, syncope, palpitations, irregular heart rate, lightheadedness , peripheral edema RESPIRATORY: Absent: cough, shortness of breath, dyspnea with exertion, orthopnea, wheezing, stridor, hemoptysis GASTROINTESTINAL: Absent: abdominal pain, abdominal distension, nausea, vomiting, diarrhea, constipation, melena, hematochezia GENITOURINARY: Absent: dysuria, frequency, urgency, hesitancy, hematuria, flank pain, genital pain MUSCULOSKELETAL: Absent: myalgia, arthralgia, joint swelling, back pain, neck pain SKIN: Absent: rash, itching, pallor HEMATOLOGIC/IMMUNOLOGIC: Absent: easy bleeding, easy bruising, lymphadenopathy, frequent infections ENDOCRINE: Absent: unexplained weight gain, unexplained weight loss, heat intolerance, cold intolerance NEUROLOGIC: Absent: headache, focal weakness or paresthesias, dizziness, unsteady gait, seizure, mental status changes, bladder or bowel incontinence PHYSICAL EXAMINATION Vital Signs - 24 hr 05/02/19 05/02/19 05/02/19 07:17 08:20 08:25 Temperature 98.6 F Pulse Rate 75 69 70 Respiratory 18 20 12 Rate Blood Pressure 134/87 143/100 142/111 H O2 Sat by Pulse 99 99 99 Oximetry (%) 05/02/19 05/02/19 08:30 08:35 Temperature Pulse Rate 72 66 Respiratory 12 14 Rate Blood Pressure 140/96 143/100 O2 Sat by Pulse 95 95 Oximetry (%) GENERAL: Awake, alert, and fully oriented, in no acute distress. HEAD: Normal with no signs of trauma. EYES: Pupils equal, round and reactive to light, sclera anicteric, conjunctiva clear. LUNGS: Breath sounds equal, clear to auscultation bilaterally. No wheezes, and no crackles. No accessory muscle use. HEART: Regular rate and rhythm, normal S1 and S2 ABDOMEN: Soft, nontender, not distended MUSCULOSKELETAL: Normal range of motion at all joints. No bony deformities or tenderness. No CVA tenderness. UPPER EXTREMITIES: 2+ pulses, warm, well-perfused. No cyanosis. No clubbing. No peripheral edema. LOWER EXTREMITIES: 2+ pulses, warm, well-perfused. No calf tenderness. No peripheral edema. NEUROLOGICAL: Cranial nerves II-XII intact. Normal speech. ASSESSMENT/PLAN: 32 year-old female with a PMH of major depressive disorder. She presents today for ECT. Cardiac --no cardiac history --Revised Cardiac Risk Index for Pre-Operative Risk: 0 points, 0.4% risk of major cardiac event Pulmonary --no pulmonary history Neurological --no neurological or neurosurgical history; no history of trauma Anesthesia --no reported problems with anesthesia ECT is a low risk procedure. The relative benefits of the planned procedure outweigh the relative risks for this patient at this time. Visit type - Emergency Visit Emergency Visit: No - New Patient This patient is new to me today: Yes Date on this admission: 05/02/19 - Critical Care Critical Care patient: No
[2019-05-02 09:02] VITALS: TEMP 98.4
[2019-05-02 09:29] VITALS: BP 139/91; PULSE 66
== END 2019-05-02 09:25 | disposition home or self-care (01) ==
LOC: FECT 05:38
PROVIDERS: ATTEND Psychiatry & Neurology Psychiatry
PROC: GZB4ZZZ Other Electroconvulsive Therapy (ICD-10-PCS; principal; 2019-05-02 07:00)
DX: F33.2 Major depressive disorder, recurrent severe without psychotic features (principal)
CPT/HCPCS: 81025; 90870; 94760

== ENCOUNTER 2019-05-30 05:44 | Day surgery (SDC) | payer OTHER ==
[2019-05-30 07:10] VITALS: BMI 25.0
[2019-05-30] MEDS ORDERED: KETAMINE HCL 500 MG/10 ML VIAL ONE (07:54)
[2019-05-30] MEDS ORDERED: PROMETHAZINE HCL 25 MG/1 ML VIAL IVPUSH PRN (08:02)
[2019-05-30] MEDS ORDERED: ACETAMINOPHEN 500 MG TABLET (FP) PO PRN (08:02)
[2019-05-30] MEDS ORDERED: LACTATED RINGERS SOLUTION 1,000 ML IV SCH (08:15)
[2019-05-30 08:54] VITALS: TEMP 98.6
[2019-05-30 09:36] VITALS: BP 135/89; PULSE 74
== END 2019-05-30 09:30 | disposition home or self-care (01) ==
LOC: FECT 05:44
PROVIDERS: ATTEND Psychiatry & Neurology Psychiatry
PROC: GZB4ZZZ Other Electroconvulsive Therapy (ICD-10-PCS; principal; 2019-05-30 07:00)
DX: F33.2 Major depressive disorder, recurrent severe without psychotic features (principal)
CPT/HCPCS: 81025; 90870; 94760

== ENCOUNTER 2020-04-02 08:07 | Day surgery (SDC) | payer OTHER ==
[~2020-04-02 08:07] MED LIST changes: +ACETAMINOPHEN 325 MG TABLET (FP) PO PRN; -KETAMINE HCL SYRINGES 150 MG/3 ML ONE; +LACTATED RINGERS SOLUTION 1,000 ML IV SCH; +PROMETHAZINE HCL 25 MG/1 ML VIAL IVPUSH PRN; -Pregnancy Control Solution IV ONE
[2020-04-02 08:37] VITALS: BMI 25.8
[2020-04-02] MEDS ORDERED: KETAMINE HCL 500 MG/10 ML VIAL ONE (09:34)
[2020-04-02] MEDS ORDERED: KETOROLAC TROMETHAMINE 30 MG/1 ML VIAL ONE (09:38)
[2020-04-02] MEDS ORDERED: ONDANSETRON 4 MG/2 ML VIAL ONE (09:38)
[2020-04-02] MEDS ORDERED: METOPROLOL TARTRATE 5 MG/5 ML VIAL ONE (09:51)
[2020-04-02 10:43] VITALS: TEMP 98.2
[2020-04-02 11:20] VITALS: BP 134/90; PULSE 64
== END 2020-04-02 11:22 | disposition home or self-care (01) ==
LOC: FECT 08:07
PROVIDERS: ATTEND Psychiatry & Neurology Psychiatry
PROC: GZB4ZZZ Other Electroconvulsive Therapy (ICD-10-PCS; principal; 2020-04-02 11:00)
DX: F32.9 Major depressive disorder, single episode, unspecified (principal)
CPT/HCPCS: 81025; 90870; 94760; C9803; U0003

== ENCOUNTER 2020-04-05 06:20 | Day surgery (SDC) | payer OTHER ==
[2020-04-05 06:57] VITALS: BMI 25.8
[2020-04-05] MEDS ORDERED: KETAMINE HCL 500 MG/10 ML VIAL ONE (07:22)
[2020-04-05] MEDS ORDERED: MIDAZOLAM HCL 2 MG/2 ML SINGLE DOSE VIAL ONE (07:30)
[2020-04-05 08:37] VITALS: TEMP 98.3
[2020-04-05 09:28] VITALS: BP 134/92; PULSE 72
[2020-04-05] MEDS ORDERED: ONDANSETRON 4 MG/2 ML VIAL IVPUSH PRN (11:14)
[2020-04-05] MEDS ORDERED: LACTATED RINGERS SOLUTION 1,000 ML IV SCH (11:15)
== END 2020-04-05 09:15 | disposition home or self-care (01) ==
LOC: FECT 06:20
PROVIDERS: ATTEND Psychiatry & Neurology Psychiatry
PROC: GZB4ZZZ Other Electroconvulsive Therapy (ICD-10-PCS; principal; 2020-04-05 10:00)
DX: F33.2 Major depressive disorder, recurrent severe without psychotic features (principal)
CPT/HCPCS: 81025; 90870; 94760; C9803; U0003

== ENCOUNTER 2020-04-09 07:28 | Day surgery (SDC) | payer OTHER ==
[2020-04-02 14:25] VITALS: BMI 25.8
[2020-04-09] MEDS ORDERED: KETAMINE HCL 500 MG/10 ML VIAL ONE (09:17)
[2020-04-09 10:55] VITALS: BP 133/90; PULSE 84; TEMP 99
== END 2020-04-09 11:00 | disposition home or self-care (01) ==
LOC: FECT 07:28
PROVIDERS: ATTEND Psychiatry & Neurology Psychiatry
PROC: GZB4ZZZ Other Electroconvulsive Therapy (ICD-10-PCS; principal; 2020-04-09 09:00)
DX: F32.9 Major depressive disorder, single episode, unspecified (principal)
CPT/HCPCS: 84703; 90870; 94760; C9803; U0003

== ENCOUNTER 2020-04-12 06:35 | Day surgery (SDC) | payer OTHER ==
[2020-04-09 12:26] VITALS: BMI 25.8
[2020-04-12] MEDS ORDERED: KETAMINE HCL 500 MG/10 ML VIAL ONE (08:05)
[2020-04-12 09:28] VITALS: TEMP 98.1
[2020-04-12 09:30] VITALS: BP 134/84; PULSE 66
== END 2020-04-12 09:30 | disposition home or self-care (01) ==
LOC: FECT 06:35
PROVIDERS: ATTEND Psychiatry & Neurology Psychiatry
PROC: GZB4ZZZ Other Electroconvulsive Therapy (ICD-10-PCS; principal; 2020-04-12 08:00)
DX: F32.9 Major depressive disorder, single episode, unspecified (principal)
CPT/HCPCS: 90870; 94760; C9803; U0003

== ENCOUNTER 2020-04-16 06:28 | Day surgery (SDC) | payer OTHER ==
[2020-04-16 07:08] VITALS: BMI 25.8
[2020-04-16] MEDS ORDERED: KETAMINE HCL 500 MG/10 ML VIAL ONE (07:33)
[2020-04-16] MEDS ORDERED: METOPROLOL TARTRATE 5 MG/5 ML VIAL ONE (08:03)
[2020-04-16 08:49] VITALS: TEMP 97.8
[2020-04-16 09:33] VITALS: BP 123/86; PULSE 81
[2020-04-16] MEDS ORDERED: ACETAMINOPHEN 325 MG TABLET (FP) PO PRN (12:46)
[2020-04-16] MEDS ORDERED: PROMETHAZINE HCL 25 MG/1 ML VIAL IVPUSH PRN (12:46)
[2020-04-16] MEDS ORDERED: LACTATED RINGERS SOLUTION 1,000 ML IV SCH (13:00)
== END 2020-04-16 09:36 | disposition home or self-care (01) ==
LOC: FECT 06:28
PROVIDERS: ATTEND Psychiatry & Neurology Psychiatry
PROC: GZB4ZZZ Other Electroconvulsive Therapy (ICD-10-PCS; principal; 2020-04-16 07:30)
DX: F32.9 Major depressive disorder, single episode, unspecified (principal)
CPT/HCPCS: 81025; 90870; 94760; C9803; U0003

== ENCOUNTER 2020-04-19 07:36 | Day surgery (SDC) | payer OTHER ==
[2020-04-19 08:10] VITALS: BMI 25.8
[2020-04-19] MEDS ORDERED: SUCCINYLCHOLINE CHLORIDE 200 MG/10 ML SYRINGE ONE (09:23)
[2020-04-19] MEDS ORDERED: KETAMINE HCL 500 MG/10 ML VIAL ONE (09:23)
[2020-04-19] MEDS ORDERED: PROPOFOL 20 ML ONE (09:23)
[2020-04-19 10:04] VITALS: TEMP 98.5
[2020-04-19 11:01] VITALS: BP 133/90; PULSE 77
== END 2020-04-19 10:45 | disposition home or self-care (01) ==
LOC: FECT 07:36
PROVIDERS: ATTEND Psychiatry & Neurology Psychiatry
PROC: GZB4ZZZ Other Electroconvulsive Therapy (ICD-10-PCS; principal; 2020-04-19 09:00)
DX: F32.9 Major depressive disorder, single episode, unspecified (principal)
CPT/HCPCS: 90870; 94760; C9803; U0003

== ENCOUNTER 2020-04-24 07:19 | Day surgery (SDC) | payer OTHER ==
[2020-04-19 15:21] VITALS: BMI 25.8
[2020-04-24 07:44] VITALS: TEMP 98.8
[2020-04-24] MEDS ORDERED: PROPOFOL 20 ML ONE (09:08)
[2020-04-24] MEDS ORDERED: SUCCINYLCHOLINE CHLORIDE 200 MG/10 ML SYRINGE ONE ×2 (09:08)
[2020-04-24] MEDS ORDERED: KETAMINE HCL 500 MG/10 ML VIAL ONE (09:09)
[2020-04-24 10:51] VITALS: BP 145/89; PULSE 82
== END 2020-04-24 10:30 | disposition home or self-care (01) ==
LOC: FECT 07:19
PROVIDERS: ATTEND Psychiatry & Neurology Psychiatry
PROC: GZB4ZZZ Other Electroconvulsive Therapy (ICD-10-PCS; principal; 2020-04-24 07:00)
DX: F32.9 Major depressive disorder, single episode, unspecified (principal)
CPT/HCPCS: 84703; 90870; 94760; C9803; U0003

== ENCOUNTER 2020-04-26 06:22 | Day surgery (SDC) | payer OTHER ==
[2020-04-19 15:57] VITALS: BMI 25.8
[2020-04-26] MEDS ORDERED: KETAMINE HCL 500 MG/10 ML VIAL ONE (07:31)
[2020-04-26 09:11] VITALS: BP 128/92; PULSE 71; TEMP 98.2
== END 2020-04-26 09:00 | disposition home or self-care (01) ==
LOC: FECT 06:22
PROVIDERS: ATTEND Psychiatry & Neurology Psychiatry
PROC: GZB4ZZZ Other Electroconvulsive Therapy (ICD-10-PCS; principal; 2020-04-26 07:30)
DX: F32.9 Major depressive disorder, single episode, unspecified (principal)
CPT/HCPCS: 90870; 94760; C9803; U0003

== ENCOUNTER 2020-04-30 06:37 | Day surgery (SDC) | payer OTHER ==
[2020-04-30 07:30] VITALS: BMI 25.8
[2020-04-30] MEDS ORDERED: KETAMINE HCL 500 MG/10 ML VIAL ONE (07:51)
[2020-04-30 09:00] VITALS: TEMP 98.5
[2020-04-30 09:28] VITALS: BP 141/86; PULSE 72
== END 2020-04-30 09:31 | disposition home or self-care (01) ==
LOC: FECT 06:37
PROVIDERS: ATTEND Psychiatry & Neurology Psychiatry
PROC: GZB4ZZZ Other Electroconvulsive Therapy (ICD-10-PCS; principal; 2020-04-30 08:00)
DX: F32.9 Major depressive disorder, single episode, unspecified (principal)
CPT/HCPCS: 81025; 90870; 94760; C9803; U0003

== ENCOUNTER 2020-05-03 06:16 | Day surgery (SDC) | payer OTHER ==
[2020-05-03 06:56] VITALS: BMI 25.8
[2020-05-03] MEDS ORDERED: KETAMINE HCL 500 MG/10 ML VIAL ONE (07:28)
[2020-05-03 09:33] VITALS: TEMP 98.5
[2020-05-03 09:40] VITALS: BP 121/82; PULSE 72
[2020-05-03] MEDS ORDERED: ACETAMINOPHEN 325 MG TABLET (FP) PO PRN (13:05)
[2020-05-03] MEDS ORDERED: LACTATED RINGERS SOLUTION 1,000 ML IV SCH (13:15)
== END 2020-05-03 09:15 | disposition home or self-care (01) ==
LOC: FECT 06:16
PROVIDERS: ATTEND Psychiatry & Neurology Psychiatry
PROC: GZB4ZZZ Other Electroconvulsive Therapy (ICD-10-PCS; principal; 2020-05-03 08:00)
DX: F32.9 Major depressive disorder, single episode, unspecified (principal)
CPT/HCPCS: 81025; 90870; 94760; C9803; U0003

== ENCOUNTER 2020-05-14 06:05 | Day surgery (SDC) | payer OTHER ==
[2020-05-03 17:11] VITALS: BMI 25.8
[2020-05-14] MEDS ORDERED: KETAMINE HCL 500 MG/10 ML VIAL ONE (07:15)
[2020-05-14 08:17] VITALS: TEMP 99.1
[2020-05-14 09:06] VITALS: BP 136/84; PULSE 72
== END 2020-05-14 08:40 | disposition home or self-care (01) ==
LOC: FECT 06:05
PROVIDERS: ATTEND Psychiatry & Neurology Psychiatry
PROC: GZB4ZZZ Other Electroconvulsive Therapy (ICD-10-PCS; principal; 2020-05-14 07:30)
DX: F32.9 Major depressive disorder, single episode, unspecified (principal)
CPT/HCPCS: 81025; 90870; 94760

== ENCOUNTER 2020-05-22 05:59 | Day surgery (SDC) | payer OTHER ==
[2020-05-22 07:12] VITALS: TEMP 98.4; BMI 27.4
[2020-05-22] MEDS ORDERED: KETAMINE HCL 500 MG/10 ML VIAL ONE (07:45)
[2020-05-22 09:53] VITALS: BP 131/89; PULSE 79
== END 2020-05-22 09:45 | disposition home or self-care (01) ==
LOC: FECT 05:59
PROVIDERS: ATTEND Psychiatry & Neurology Psychiatry
PROC: GZB4ZZZ Other Electroconvulsive Therapy (ICD-10-PCS; principal; 2020-05-22 08:30)
DX: F32.9 Major depressive disorder, single episode, unspecified (principal)
CPT/HCPCS: 81025; 90870; 94760

== ENCOUNTER 2020-05-28 06:36 | Day surgery (SDC) | payer OTHER ==
[2020-05-28 07:25] VITALS: TEMP 98.2; BMI 27.4
[2020-05-28] MEDS ORDERED: KETAMINE HCL 500 MG/10 ML VIAL ONE (08:16)
[2020-05-28] MEDS ORDERED: KETAMINE HCL 200 MG/20 ML VIAL ONE (08:23)
[2020-05-28 09:56] VITALS: BP 131/89; PULSE 74
== END 2020-05-28 09:45 | disposition home or self-care (01) ==
LOC: FECT 06:36
PROVIDERS: ATTEND Psychiatry & Neurology Psychiatry
PROC: GZB4ZZZ Other Electroconvulsive Therapy (ICD-10-PCS; principal; 2020-05-28 08:30)
DX: F33.2 Major depressive disorder, recurrent severe without psychotic features (principal)
CPT/HCPCS: 81025; 90870; 94760

== ENCOUNTER 2020-06-04 06:15 | Day surgery (SDC) | payer OTHER ==
[2020-06-04 07:00] VITALS: BMI 26.6
[2020-06-04] MEDS ORDERED: KETAMINE HCL 500 MG/10 ML VIAL ONE (07:50)
[2020-06-04] MEDS ORDERED: METOPROLOL TARTRATE 5 MG/5 ML VIAL ONE (08:08)
[2020-06-04 09:19] VITALS: PULSE 88; TEMP 98
[2020-06-04 09:31] VITALS: BP 128/89
[2020-06-04] MEDS ORDERED: ACETAMINOPHEN 325 MG TABLET (FP) PO PRN (11:47)
[2020-06-04] MEDS ORDERED: LACTATED RINGERS SOLUTION 1,000 ML IV SCH (12:00)
== END 2020-06-04 09:05 | disposition home or self-care (01) ==
LOC: FECT 06:15
PROVIDERS: ATTEND Psychiatry & Neurology Psychiatry
PROC: GZB4ZZZ Other Electroconvulsive Therapy (ICD-10-PCS; principal; 2020-06-04 08:00)
DX: F32.9 Major depressive disorder, single episode, unspecified (principal)
CPT/HCPCS: 81025; 90870; 94760

== ENCOUNTER 2020-06-11 06:32 | Day surgery (SDC) | payer OTHER ==
[2020-06-11 07:03] VITALS: BMI 26.6
[2020-06-11] MEDS ORDERED: KETAMINE HCL 500 MG/10 ML VIAL ONE (07:57)
[2020-06-11] MEDS ORDERED: LIDOCAINE HCL 4% TOPICAL SOLN (50 ML/BOTTLE) ONE (08:28)
[2020-06-11] MEDS ORDERED: GLYCOPYRROLATE 0.2 MG/1 ML VIAL ONE (08:28)
[2020-06-11 08:59] VITALS: TEMP 98.6
[2020-06-11 09:15] VITALS: PULSE 71
[2020-06-11 09:20] VITALS: BP 127/88
== END 2020-06-11 09:22 | disposition home or self-care (01) ==
LOC: FECT 06:32
PROVIDERS: ATTEND Psychiatry & Neurology Psychiatry
PROC: GZB4ZZZ Other Electroconvulsive Therapy (ICD-10-PCS; principal; 2020-06-11 10:00)
DX: F32.9 Major depressive disorder, single episode, unspecified (principal)
CPT/HCPCS: 81025; 90870; 94760

== ENCOUNTER 2020-06-18 05:59 | Day surgery (SDC) | payer OTHER ==
[2020-06-13 16:22] VITALS: BMI 26.6
[2020-06-18] MEDS ORDERED: KETAMINE HCL 500 MG/10 ML VIAL ONE (07:23)
[2020-06-18] MEDS ORDERED: LABETALOL HCL 5 MG/1 ML (100MG/20 ML VIAL) ONE ×2 (07:31)
[2020-06-18 08:07] VITALS: TEMP 98.4
[2020-06-18 09:07] VITALS: BP 135/85; PULSE 87
== END 2020-06-18 08:50 | disposition home or self-care (01) ==
LOC: FECT 05:59
PROVIDERS: ATTEND Psychiatry & Neurology Psychiatry
PROC: GZB4ZZZ Other Electroconvulsive Therapy (ICD-10-PCS; principal; 2020-06-18 07:30)
DX: F32.9 Major depressive disorder, single episode, unspecified (principal)
CPT/HCPCS: 81025; 90870; 94760

== ENCOUNTER 2020-07-02 07:49 | Day surgery (SDC) | payer OTHER ==
[2020-07-02 08:19] VITALS: BMI 26.6
[2020-07-02] MEDS ORDERED: KETAMINE HCL 500 MG/10 ML VIAL ONE (08:57)
[2020-07-02] MEDS ORDERED: METOPROLOL TARTRATE 5 MG/5 ML VIAL ONE ×2 (09:33→09:36)
[2020-07-02] MEDS ORDERED: ACETAMINOPHEN 325 MG TABLET (FP) PO PRN (10:19)
[2020-07-02] MEDS ORDERED: PROMETHAZINE HCL 25 MG/1 ML VIAL IVPUSH PRN (10:19)
[2020-07-02 10:25] VITALS: TEMP 98.9
[2020-07-02] MEDS ORDERED: LACTATED RINGERS SOLUTION 1,000 ML IV SCH (10:30)
[2020-07-02 10:48] VITALS: BP 133/89; PULSE 64
== END 2020-07-02 10:50 | disposition home or self-care (01) ==
LOC: FECT 07:49
PROVIDERS: ATTEND Psychiatry & Neurology Psychiatry
PROC: GZB4ZZZ Other Electroconvulsive Therapy (ICD-10-PCS; principal; 2020-07-02 10:00)
DX: F32.9 Major depressive disorder, single episode, unspecified (principal)
CPT/HCPCS: 84703; 90870; 94760

== ENCOUNTER 2020-07-16 06:09 | Day surgery (SDC) | payer OTHER ==
[2020-07-10 14:26] VITALS: BMI 26.6
[2020-07-16] MEDS ORDERED: LIDOCAINE HCL/PF 2% SDV 5ML VIAL ONE (07:02)
[2020-07-16] MEDS ORDERED: PROPOFOL 20 ML ONE ×2 (07:02)
[2020-07-16] MEDS ORDERED: SUCCINYLCHOLINE CHLORIDE 200 MG/10 ML SYRINGE ONE (07:03)
[2020-07-16] MEDS ORDERED: KETAMINE HCL 500 MG/10 ML VIAL ONE (07:19)
[2020-07-16 08:26] VITALS: TEMP 98
[2020-07-16] MEDS ORDERED: ONDANSETRON 4 MG/2 ML VIAL IVPUSH PRN (08:46)
[2020-07-16 08:55] VITALS: BP 136/92; PULSE 62
[2020-07-16] MEDS ORDERED: LACTATED RINGERS SOLUTION 1,000 ML IV SCH (09:00)
== END 2020-07-16 08:55 | disposition home or self-care (01) ==
LOC: FECT 06:09
PROVIDERS: ATTEND Psychiatry & Neurology Psychiatry
PROC: GZB4ZZZ Other Electroconvulsive Therapy (ICD-10-PCS; principal; 2020-07-16 07:30)
DX: F32.9 Major depressive disorder, single episode, unspecified (principal)
CPT/HCPCS: 81025; 90870; 94760

== ENCOUNTER 2020-07-30 06:01 | Day surgery (SDC) | payer OTHER ==
[2020-07-24 07:15] VITALS: BMI 26.6
[2020-07-30] MEDS ORDERED: KETAMINE HCL 500 MG/10 ML VIAL ONE (07:44)
[2020-07-30] MEDS ORDERED: LABETALOL HCL 5 MG/1 ML (100MG/20 ML VIAL) ONE (08:07)
[2020-07-30 08:37] VITALS: TEMP 98.7
[2020-07-30 09:09] VITALS: BP 131/88; PULSE 77
== END 2020-07-30 09:10 | disposition home or self-care (01) ==
LOC: FECT 06:01
PROVIDERS: ATTEND Psychiatry & Neurology Psychiatry
PROC: GZB4ZZZ Other Electroconvulsive Therapy (ICD-10-PCS; principal; 2020-07-30 08:30)
DX: F32.9 Major depressive disorder, single episode, unspecified (principal)
CPT/HCPCS: 81025; 90870; 94760

== ENCOUNTER 2020-08-13 06:07 | Day surgery (SDC) | payer OTHER ==
[2020-08-13 06:48] VITALS: BMI 26.6
[2020-08-13] MEDS ORDERED: PROPOFOL 20 ML ONE ×2 (07:41)
[2020-08-13] MEDS ORDERED: SUCCINYLCHOLINE CHLORIDE 200 MG/10 ML SYRINGE ONE (07:41)
[2020-08-13] MEDS ORDERED: KETAMINE HCL 500 MG/10 ML VIAL ONE (07:52)
[2020-08-13] MEDS ORDERED: ONDANSETRON 4 MG/2 ML VIAL ONE (07:55)
[2020-08-13] MEDS ORDERED: DEXAMETHASONE SOD PHOSPHATE 4 MG/1 ML VIAL ONE (07:56)
[2020-08-13 09:10] VITALS: BP 131/85; PULSE 84; TEMP 97.8
== END 2020-08-13 09:00 | disposition home or self-care (01) ==
LOC: FECT 06:07
PROVIDERS: ATTEND Psychiatry & Neurology Psychiatry
PROC: GZB4ZZZ Other Electroconvulsive Therapy (ICD-10-PCS; principal; 2020-08-13 08:00)
DX: F32.9 Major depressive disorder, single episode, unspecified (principal)
CPT/HCPCS: 81025; 90870; 94760

== ENCOUNTER 2020-08-23 06:08 | Day surgery (SDC) | payer OTHER ==
[2020-08-23 06:54] VITALS: BMI 26.6
[2020-08-23] MEDS ORDERED: KETAMINE HCL 500 MG/10 ML VIAL ONE (07:14)
[2020-08-23 09:28] VITALS: TEMP 98.7
[2020-08-23 09:29] VITALS: BP 136/90; PULSE 66
== END 2020-08-23 08:50 | disposition home or self-care (01) ==
LOC: FECT 06:08
PROVIDERS: ATTEND Psychiatry & Neurology Psychiatry
PROC: GZB4ZZZ Other Electroconvulsive Therapy (ICD-10-PCS; principal; 2020-08-23 07:15)
DX: F32.9 Major depressive disorder, single episode, unspecified (principal)
CPT/HCPCS: 81025; 90870; 94760

== ENCOUNTER 2020-09-17 08:33 | Day surgery (SDC) | payer OTHER ==
[2020-09-17 08:59] VITALS: BMI 26.6
[2020-09-17] MEDS ORDERED: KETAMINE HCL 500 MG/10 ML VIAL ONE (10:04)
[2020-09-17] MEDS ORDERED: LABETALOL HCL 5 MG/1 ML (100MG/20 ML VIAL) ONE (10:21)
[2020-09-17 11:04] VITALS: PULSE 72; TEMP 98.6
[2020-09-17 11:55] LABS: HEMATOCRIT 41.1 % (32.4-45.2); HEMOGLOBIN 14.2 GM/dl (10.7-15.3); MCH 32.2 pg (25.7-33.7); MCHC 34.5 g/dl (32.0-36.0); MEAN CELL VOLUME 93.5 fl (80-96); MEAN PLT VOLUME 8.1 fl (7.5-11.1); PLATELET COUNT 321 K/MM3 (134-434)
[2020-09-17 11:58] LABS: ALBUMIN 3.8 g/dl (3.4-5.0); BILIRUBIN,TOTAL 0.5 mg/dl (0.2-1); CALCIUM 8.4 mg/dl (8.5-10); CREATININE 0.6 mg/dl (0.55-1.3); MAGNESIUM 1.7 mg/dL (1.8-2.4); TOT PROT 6.1 g/dl (6.4-8.2)
[2020-09-17 12:14] VITALS: BP 135/89
== END 2020-09-17 11:30 | disposition home or self-care (01) ==
LOC: FECT 08:33
PROVIDERS: ATTEND Psychiatry & Neurology Psychiatry
PROC: GZB4ZZZ Other Electroconvulsive Therapy (ICD-10-PCS; principal; 2020-09-17 10:00)
DX: F32.9 Major depressive disorder, single episode, unspecified (principal)
CPT/HCPCS: 36415; 80053; 83735; 84703; 85027; 90870; 93005; 94760

== ENCOUNTER 2020-10-01 08:05 | Day surgery (SDC) | payer OTHER ==
[2020-09-26 15:21] VITALS: BMI 26.6
[2020-10-01] MEDS ORDERED: KETAMINE HCL 500 MG/10 ML VIAL ONE (08:51)
[2020-10-01 09:51] VITALS: TEMP 99.5
[2020-10-01 10:10] VITALS: BP 141/91; PULSE 79
[2020-10-01] MEDS ORDERED: ACETAMINOPHEN 325 MG TABLET (FP) PO PRN (10:37)
[2020-10-01] MEDS ORDERED: PROMETHAZINE HCL 25 MG/1 ML VIAL IVPB PRN (10:37)
[2020-10-01] MEDS ORDERED: LACTATED RINGERS SOLUTION 1,000 ML IV SCH (10:45)
== END 2020-10-01 10:15 | disposition home or self-care (01) ==
LOC: FECT 08:05
PROVIDERS: ATTEND Psychiatry & Neurology Psychiatry
PROC: GZB4ZZZ Other Electroconvulsive Therapy (ICD-10-PCS; principal; 2020-10-01 09:30)
DX: F33.2 Major depressive disorder, recurrent severe without psychotic features (principal)
CPT/HCPCS: 81025; 90870; 94760

== ENCOUNTER 2020-10-15 06:17 | Day surgery (SDC) | payer OTHER ==
[2020-10-15 07:21] VITALS: BMI 26.6
[2020-10-15] MEDS ORDERED: KETAMINE HCL 500 MG/10 ML VIAL ONE (07:38)
[2020-10-15 08:07] VITALS: TEMP 98.1
[2020-10-15 09:31] VITALS: BP 133/89; PULSE 66
== END 2020-10-15 09:05 | disposition home or self-care (01) ==
LOC: FECT 06:17
PROVIDERS: ATTEND Psychiatry & Neurology Psychiatry
PROC: GZB4ZZZ Other Electroconvulsive Therapy (ICD-10-PCS; principal; 2020-10-15 08:00)
DX: F32.9 Major depressive disorder, single episode, unspecified (principal)
CPT/HCPCS: 81025; 90870; 94760

== ENCOUNTER 2020-10-29 05:52 | Day surgery (SDC) | payer OTHER ==
[2020-10-29 06:56] VITALS: BMI 26.6
[2020-10-29] MEDS ORDERED: KETAMINE HCL 500 MG/10 ML VIAL ONE (08:02)
[2020-10-29] MEDS ORDERED: LIDOCAINE HCL/PF 2% SDV 5ML VIAL ONE (08:12)
[2020-10-29] MEDS ORDERED: METOPROLOL TARTRATE 5 MG/5 ML VIAL ONE (08:23)
[2020-10-29 09:04] VITALS: TEMP 98.9
[2020-10-29 09:35] VITALS: BP 122/89; PULSE 76
== END 2020-10-29 09:35 | disposition home or self-care (01) ==
LOC: FECT 05:52
PROVIDERS: ATTEND Psychiatry & Neurology Psychiatry
PROC: GZB4ZZZ Other Electroconvulsive Therapy (ICD-10-PCS; principal; 2020-10-29 08:00)
DX: F32.9 Major depressive disorder, single episode, unspecified (principal)
CPT/HCPCS: 81025; 90870; 94760

== ENCOUNTER 2020-11-12 08:03 | Day surgery (SDC) | payer OTHER ==
[2020-10-29 15:24] VITALS: BMI 26.6
[2020-11-12] MEDS ORDERED: PROPOFOL 20 ML ONE (10:15)
[2020-11-12] MEDS ORDERED: KETAMINE HCL 500 MG/10 ML VIAL ONE (10:16)
[2020-11-12] MEDS ORDERED: DEXAMETHASONE SOD PHOSPHATE 4 MG/1 ML VIAL ONE (10:22)
[2020-11-12] MEDS ORDERED: ONDANSETRON 4 MG/2 ML VIAL ONE (10:22)
[2020-11-12 11:20] VITALS: TEMP 98.2
[2020-11-12 11:53] VITALS: BP 130/88; PULSE 69
== END 2020-11-12 11:55 | disposition home or self-care (01) ==
LOC: FECT 08:03
PROVIDERS: ATTEND Psychiatry & Neurology Psychiatry
PROC: GZB4ZZZ Other Electroconvulsive Therapy (ICD-10-PCS; principal; 2020-11-12 10:00)
DX: F32.9 Major depressive disorder, single episode, unspecified (principal)
CPT/HCPCS: 81025; 90870; 94760

== ENCOUNTER 2020-11-26 08:42 | Day surgery (SDC) | payer OTHER ==
[2020-11-26 09:17] VITALS: BMI 26.6
[2020-11-26] MEDS ORDERED: KETAMINE HCL 500 MG/10 ML VIAL ONE (10:35)
[2020-11-26 11:42] VITALS: PULSE 84; TEMP 99.1
[2020-11-26 11:52] VITALS: BP 138/90
== END 2020-11-26 12:00 | disposition home or self-care (01) ==
LOC: FECT 08:42
PROVIDERS: ATTEND Psychiatry & Neurology Psychiatry
PROC: GZB4ZZZ Other Electroconvulsive Therapy (ICD-10-PCS; principal; 2020-11-26 10:00)
DX: F32.9 Major depressive disorder, single episode, unspecified (principal)
CPT/HCPCS: 84703; 90870; 94760

== ENCOUNTER 2020-12-07 06:25 | Day surgery (SDC) | payer OTHER ==
[2020-12-07 07:28] VITALS: BMI 27.2
[2020-12-07] MEDS ORDERED: KETAMINE HCL 500 MG/10 ML VIAL ONE (08:29)
[2020-12-07] MEDS ORDERED: IBUPROFEN 600 MG TABLET (FP) PO ONE (09:38)
[2020-12-07 09:42] VITALS: TEMP 97.8
[2020-12-07 10:07] VITALS: BP 134/88; PULSE 64
== END 2020-12-07 10:05 | disposition home or self-care (01) ==
LOC: FECT 06:25
PROVIDERS: ATTEND Psychiatry & Neurology Psychiatry
PROC: GZB4ZZZ Other Electroconvulsive Therapy (ICD-10-PCS; principal; 2020-12-07 08:30)
DX: F32.9 Major depressive disorder, single episode, unspecified (principal)
CPT/HCPCS: 90870; 94760

== ENCOUNTER 2020-12-17 08:47 | Day surgery (SDC) | payer OTHER ==
[2020-12-04 12:07] VITALS: BMI 26.6
[2020-12-17] MEDS ORDERED: KETAMINE HCL 500 MG/10 ML VIAL ONE (09:42)
[2020-12-17] MEDS ORDERED: PROPOFOL 20 ML ONE (09:45)
[2020-12-17] MEDS ORDERED: SUCCINYLCHOLINE CHLORIDE 200 MG/10 ML SYRINGE ONE (09:45)
[2020-12-17] MEDS ORDERED: ONDANSETRON 4 MG/2 ML VIAL ONE (09:47)
[2020-12-17] MEDS ORDERED: DEXAMETHASONE SOD PHOSPHATE 4 MG/1 ML VIAL ONE (09:47)
[2020-12-17] MEDS ORDERED: hydrALAZINE HCL 20 MG/ML VIAL ONE (09:56)
[2020-12-17 10:54] VITALS: TEMP 98.1
[2020-12-17 11:25] VITALS: BP 126/72; PULSE 92
== END 2020-12-17 11:26 | disposition home or self-care (01) ==
LOC: FECT 08:47
PROVIDERS: ATTEND Psychiatry & Neurology Psychiatry
PROC: GZB4ZZZ Other Electroconvulsive Therapy (ICD-10-PCS; principal; 2020-12-17 10:00)
DX: F32.9 Major depressive disorder, single episode, unspecified (principal)
CPT/HCPCS: 84703; 90870; 94760

== ENCOUNTER 2020-12-31 08:54 | Day surgery (SDC) | payer OTHER ==
[2020-12-24 14:27] VITALS: BMI 26.6
[2020-12-31] MEDS ORDERED: KETAMINE HCL 500 MG/10 ML VIAL ONE (10:09)
[2020-12-31] MEDS ORDERED: PROPOFOL 20 ML ONE (10:29)
[2020-12-31 11:29] VITALS: TEMP 98.6
[2020-12-31 13:39] VITALS: BP 138/96; PULSE 84
== END 2020-12-31 11:42 | disposition home or self-care (01) ==
LOC: FECT 08:54
PROVIDERS: ATTEND Psychiatry & Neurology Psychiatry
PROC: GZB4ZZZ Other Electroconvulsive Therapy (ICD-10-PCS; principal; 2020-12-31 10:30)
DX: F32.9 Major depressive disorder, single episode, unspecified (principal)
CPT/HCPCS: 84703; 90870; 94760

== ENCOUNTER 2021-01-14 07:10 | Day surgery (SDC) | payer OTHER ==
[2021-01-14 07:42] VITALS: BMI 26.6
[2021-01-14] MEDS ORDERED: KETAMINE HCL 500 MG/10 ML VIAL ONE (07:55)
[2021-01-14] MEDS ORDERED: hydrALAZINE HCL 20 MG/ML VIAL ONE (08:11)
[2021-01-14 08:51] VITALS: TEMP 98.7
[2021-01-14 09:32] VITALS: BP 141/91; PULSE 82
== END 2021-01-14 09:38 | disposition home or self-care (01) ==
LOC: FECT 07:10
PROVIDERS: ATTEND Psychiatry & Neurology Psychiatry
PROC: GZB4ZZZ Other Electroconvulsive Therapy (ICD-10-PCS; principal; 2021-01-14 08:30)
DX: F32.9 Major depressive disorder, single episode, unspecified (principal)
CPT/HCPCS: 81025; 90870; 94760

== ENCOUNTER 2021-02-04 08:08 | Day surgery (SDC) | payer OTHER ==
[2021-01-25 12:14] VITALS: BMI 26.6
[2021-02-04 08:31] VITALS: TEMP 97.8
[2021-02-04] MEDS ORDERED: KETAMINE HCL 500 MG/10 ML VIAL ONE (09:03)
[2021-02-04] MEDS ORDERED: LABETALOL HCL 5 MG/1 ML (100MG/20 ML VIAL) ONE (09:18)
[2021-02-04 10:28] VITALS: BP 128/92; PULSE 68
== END 2021-02-04 10:25 | disposition home or self-care (01) ==
LOC: FECT 08:08
PROVIDERS: ATTEND Psychiatry & Neurology Psychiatry
PROC: GZB4ZZZ Other Electroconvulsive Therapy (ICD-10-PCS; principal; 2021-02-04 10:00)
DX: F32.9 Major depressive disorder, single episode, unspecified (principal)
CPT/HCPCS: 84703; 90870; 94760

== ENCOUNTER 2021-02-25 06:39 | Day surgery (SDC) | payer OTHER ==
[2021-02-25 07:23] VITALS: BMI 27.4
[2021-02-25] MEDS ORDERED: KETAMINE HCL 500 MG/10 ML VIAL ONE (08:47)
[2021-02-25] MEDS ORDERED: LABETALOL HCL 5 MG/1 ML (100MG/20 ML VIAL) ONE (09:16)
[2021-02-25 10:08] VITALS: BP 144/92; PULSE 69; TEMP 98.3
[2021-02-25] MEDS ORDERED: ONDANSETRON 4 MG/2 ML VIAL IVPUSH PRN (11:20)
[2021-02-25] MEDS ORDERED: LACTATED RINGERS SOLUTION 1,000 ML IV SCH (11:30)
== END 2021-02-25 10:00 | disposition home or self-care (01) ==
LOC: FECT 06:39
PROVIDERS: ATTEND Psychiatry & Neurology Psychiatry
PROC: GZB4ZZZ Other Electroconvulsive Therapy (ICD-10-PCS; principal; 2021-02-25 08:30)
DX: F32.9 Major depressive disorder, single episode, unspecified (principal)
CPT/HCPCS: 81025; 90870; 94760

== ENCOUNTER 2021-03-25 10:27 | Day surgery (SDC) | payer OTHER ==
[2021-03-22 16:16] VITALS: BMI 26.6
[2021-03-25 11:43] LABS: ALBUMIN 4.1 g/dl (3.4-5.0); BILIRUBIN,TOTAL 0.8 mg/dl (0.2-1); CREATININE 0.7 mg/dl (0.55-1.3); TOT PROT 6.4 g/dl (6.4-8.2)
[2021-03-25 12:46] LABS: HEMATOCRIT 43.4 % (32.4-45.2); HEMOGLOBIN 15.2 GM/dL (10.7-15.3); MCH 32.8 pg (25.7-33.7); MEAN CELL VOLUME 93.7 fl (80-96); PLATELET COUNT 387 10^3/uL (134-434); RBC 4.63 M/mm3 (3.60-5.2); RDW 12.5 % (11.6-15.6); WHITE BLOOD COUNT 4.6 K/mm3 (4.0-10.0)
[2021-03-25 13:28] VITALS: BP 145/96; PULSE 68; TEMP 98.7
== END 2021-03-25 13:10 | disposition home or self-care (01) ==
LOC: FECT 10:27
PROVIDERS: ATTEND Psychiatry & Neurology Psychiatry
PROC: GZB4ZZZ Other Electroconvulsive Therapy (ICD-10-PCS; principal; 2021-03-25)
DX: F33.2 Major depressive disorder, recurrent severe without psychotic features (principal)
CPT/HCPCS: 36415; 80053; 84703; 85027; 90870; 93005; 93010; 94760

== ENCOUNTER 2021-04-29 09:53 | Day surgery (SDC) | payer OTHER ==
[2021-04-29 10:34] VITALS: BMI 27.4
[2021-04-29] MEDS ORDERED: KETAMINE HCL 500 MG/10 ML VIAL ONE (10:57)
[2021-04-29] MEDS ORDERED: SUCCINYLCHOLINE CHLORIDE 200 MG/10 ML SYRINGE ONE (11:01)
[2021-04-29] MEDS ORDERED: PROPOFOL 20 ML ONE (11:09)
[2021-04-29] MEDS ORDERED: LABETALOL HCL 5 MG/1 ML (100MG/20 ML VIAL) ONE (11:11)
[2021-04-29 12:20] VITALS: TEMP 98.4
[2021-04-29 12:23] VITALS: BP 130/84; PULSE 66
== END 2021-04-29 12:15 | disposition home or self-care (01) ==
LOC: FECT 09:53
PROVIDERS: ATTEND Psychiatry & Neurology Psychiatry
PROC: GZB4ZZZ Other Electroconvulsive Therapy (ICD-10-PCS; principal; 2021-04-29 11:30)
DX: F33.2 Major depressive disorder, recurrent severe without psychotic features (principal)
CPT/HCPCS: 84703; 90870; 94760

== ENCOUNTER 2021-06-03 08:47 | Day surgery (SDC) | payer OTHER ==
[2021-05-29 15:23] VITALS: BMI 27.4
[2021-06-03 11:11] VITALS: PULSE 71
[2021-06-03 11:40] VITALS: BP 143/92; TEMP 97.3
== END 2021-06-03 11:47 | disposition home or self-care (01) ==
LOC: FECT 08:47
PROVIDERS: ATTEND Psychiatry & Neurology Psychiatry
PROC: GZB4ZZZ Other Electroconvulsive Therapy (ICD-10-PCS; principal; 2021-06-03 10:30)
DX: F33.2 Major depressive disorder, recurrent severe without psychotic features (principal)
CPT/HCPCS: 84703; 90870; 94760

== ENCOUNTER 2021-07-01 05:55 | Day surgery (SDC) | payer OTHER ==
[2021-06-25 12:44] VITALS: BMI 27.4
[2021-07-01] MEDS ORDERED: KETAMINE HCL 500 MG/10 ML VIAL ONE (07:43)
[2021-07-01 08:40] VITALS: BP 132/82; PULSE 78; TEMP 98.3
== END 2021-07-01 09:05 | disposition home or self-care (01) ==
LOC: FECT 05:55
PROVIDERS: ATTEND Psychiatry & Neurology Psychiatry
PROC: GZB4ZZZ Other Electroconvulsive Therapy (ICD-10-PCS; principal; 2021-07-01 07:54)
DX: F33.2 Major depressive disorder, recurrent severe without psychotic features (principal)
CPT/HCPCS: 81025; 90870; 94760

== ENCOUNTER 2021-07-12 06:18 | Day surgery (SDC) | payer OTHER ==
[2021-07-09 17:50] VITALS: BMI 27.4
[2021-07-12] MEDS ORDERED: KETAMINE HCL 500 MG/10 ML VIAL ONE (07:58)
[2021-07-12 09:30] VITALS: BP 130/88; PULSE 73; TEMP 98.9
== END 2021-07-12 09:25 | disposition home or self-care (01) ==
LOC: FECT 06:18
PROVIDERS: ATTEND Psychiatry & Neurology Psychiatry
PROC: GZB4ZZZ Other Electroconvulsive Therapy (ICD-10-PCS; principal; 2021-07-12 08:00)
DX: F32.9 Major depressive disorder, single episode, unspecified (principal)
CPT/HCPCS: 81025; 90870; 94760